=== PATIENT | male | born 1935 | race Caucasian/White ===

== ENCOUNTER 2019-07-27 17:54 | Inpatient (IN) ==
[2019-07-27 18:31] LABS: Hematocrit (blood only) 37.4 % (42-52); Hemoglobin 12.2 g/dL (14.0-18.0); Mean Corpuscular Hemoglobin 30.6 pg (25-34); Mean Corpuscular Hgb Conc 32.6 g/dL (32-36); Mean Corpuscular Volume 93.7 fL (80-100); Mean Platelet Volume 12.1 fL (7.4-10.4); Platelet Count 173 K/uL (130-400); RDW Coefficient of Variation 16.6 % (11.5-14.5); RDW Standard Deviation 56.8 fL (36.4-46.3); Red Blood Count 3.99 M/uL (4.7-6.1); White Blood Count 16.17 K/uL (4.8-10.8)
--- NOTE | 2019-07-27 18:31 | Emergency Department Note ---
Entered by Naida Hollingsworth acting as a scribe for History of Present Illness General Chief complaint: Confusion Stated complaint: CONFUSION, LETHARGY Time Seen by Provider: 07/27/19 18:14 Source: patient History of Present Illness Provider complaint: confusion Onset (ago): hour(s) Location: left and right Pain Consistency: + now resolved Quality: + other (confusion) Associated symptoms: + other (Negative generalized pain; Negative recent falls); no fever/chills and no nausea/vomiting The patient, who is a 83 year old male with a medical history of GE junction carcinoma and a benign prostatic hyperplasia, presents to the Emergency Room with complaints of confusion that occurred prior to arrival. The patient states that a couple hours ago he was unable to find any of the three bathrooms in his house. The patient denies fever, nausea, vomiting, generalized pain or recent falls. The patient explains that he has intermittent urinary burning and diarrhea that is unrelated this this event. The patient denies the use of oxygen at home. The patient explains tat he has never been confused before and states that he feels fine right now. The patient confirms that he lives with his and is maintaining appropriate fluids. The patient reports that that he has esophageal cancer that has metastasized but he is unsure wear. The patient states that he had chemotherapy treatment recently and did not have a change in medication. The patient denies that he is taking pain medication at this time. The patient states that he was diabetic but he has lost weight and reports non- concerning glucose levels. Home Medications Home Medications Medication Instructions Recorded Confirmed Type enalapril maleate [Vasotec] 10 mg PO QAM 01/13/19 07/27/19 History finasteride [Proscar] 5 mg PO QPM 01/13/19 07/27/19 History pravastatin [Pravachol] 40 mg PO HS 01/13/19 07/27/19 History ranitidine HCl [Acid Control 150 mg PO BID 01/13/19 07/27/19 History (ranitidine)] tamsulosin [Flomax] 0.4 mg PO HS 01/13/19 07/27/19 History ondansetron HCl [Zofran] 8 mg PO Q8 PRN 03/23/19 07/27/19 History prochlorperazine maleate 10 mg PO Q6H PRN 03/23/19 07/27/19 History dexamethasone 12 mg PO DIRECTED 06/15/19 07/27/19 History fluticasone propionate 2 spray INTRANASAL DAILY 06/15/19 07/27/19 History lorazepam 0.5 mg PO TID PRN 06/15/19 07/27/19 History oxycodone 5 mg PO Q6H PRN 06/15/19 07/27/19 History pantoprazole 40 mg PO DAILY 06/15/19 07/27/19 History Allergies Allergy/AdvReac Type Severity Reaction Status Date / Time cephalexin [From Keflex] Allergy Severe Rash Verified 07/27/19 18:36 Sulfa (Sulfonamide Allergy Severe Rash Verified 07/27/19 18:36 Antibiotics) Past Med/Surg History Medical History BPH (benign prostatic hyperplasia) (Chronic) 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) Aortic valve stenosis (Chronic) Moderate - STACEY: 1.4 cm2, Ao mean PG 17.4 mmHg Chronic kidney disease (CKD) (Chronic) Chronic rhinitis (Chronic) 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) Diaphragmatic hernia (Chronic) Dyslipidemia (Chronic) Esophageal reflux (Chronic) Hypertension (Chronic) Hypertrophic and atrophic condition of skin (Chronic) Insomnia (Chronic) Microalbuminuria (Chronic) TIA (transient ischemic attack) (Resolved) Question 1996 Cardiac murmur Hyperlipidemia Kidney stones Surgical History History of esophagogastroduodenoscopy (EGD) (Resolved) 12/09/18 & 01/13/19 History of appendectomy (Resolved) Age 16 History of anesthesia reaction UNABLE TO URINATE S/P EGD (BELIEVES IT WAS THE ANESTHESIA) AND HAD TO COME TO [facility] FOR A SCOTT CATH X2 DAYS. History of colonoscopy History of cystoscopy WITH ATTEMPTED STONE EXTRACTION Family History Mother , Passed age 67 of gallbladder surgery No problems noted. Father , Passed age 86 from complications of fall (bloodclot) No problems noted. Sister , Passed age 63 of MS No problems noted. Sister , Passed age 71 of "cancer of the blood" No problems noted. Sister , Passed age 89 of "bleeding ulcers" No problems noted. Daughter No problems noted. Daughter No problems noted. 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 and A total of 10 systems reviewed and were otherwise negative Physical Exam Vital Signs Vital Signs - 24 hr 07/27/19 17:45 07/27/19 18:36 07/27/19 19:41 Temperature 36.6 C Temperature Source Oral Sepsis Recent Fever Within 48 Hours No Sepsis Action Taken by Nursing No Action Required Pulse Rate 77 Pulse Rate [Right Finger] 72 Respiratory Rate 17 20 Blood Pressure 136/70 Blood Pressure [Right Arm] 155/70 H Blood Pressure Mean 92 Blood Pressure Mean [Right Arm] 98 Blood Pressure Position [Right Arm] Lying Pulse Oximetry 93 93 95 Oxygen Delivery Method Room Air Room Air Room Air General: Cachectic appearing older male in no acute distress. HEENT: Normal cephalic atraumatic. Pupils are equal round and reactive to light. Extraocular movements are intact. Oropharynx is pink with moist mucous membranes. No swelling of the mouth lips or tongue. Neck: Supple with a midline trachea. No meningeal signs or stiffness, no JVD or bruits. No Stridor. Chest: Clear to auscultation bilaterally. No wheezes or rhonchi. No increased work of breathing. A port in right chest Heart: regular rate and rhythm. Abdomen: Soft nontender, nondistended without rebound guarding or rigidity. Extremities: No cyanosis clubbing or edema. No calf tenderness or asymmetry Spine/Back. Non tender to palpation. No CVA tenderness Skin: Good turgor without rashes. Neurologic exam: Cranial nerves two through 12 are intact. Motor and sensation are intact and symmetrical throughout. At present alert and orient x3. Course 1815: Past medical records reviewed. The patient was evaluated in room C4. A complete history and physical exam was performed. 1922: I reassessed that patient who appears comfortable. I discussed the patient's results with his daughter and granddaughter. They have agreed that the patient should be admitted. 1933: I reviewed the patient's case with Gabo Dill Hospitalist . He will evaluate the patient for further management. 1936: I reassessed the patient who is doing ok. I updated them on hospitalist evaluation and antibiotics are starting to be administered. Consultations Consultation #1: I reviewed the patient's case with Gabo Dill Hospitalist . He will evaluate the patient for further management. Time: 19:34 Administered Medications Finasteride (Proscar) 5 mg PO QPM [facility] Stop: 08/26/19 21:26 Last Admin: 07/27/19 22:58 Dose: 5 mg Documented by: [id number] Potassium Chloride 40 meq/ (Sodium Chloride) 1,020 mls @ 100 mls/hr IV .[id number] STA Stop: 07/28/19 05:56 Last Admin: 07/27/19 20:40 Dose: 100 mls/hr Documented by: [id number] Promethazine HCl 12.5 mg/ (Sodium Chloride) 50.5 mls @ 202 mls/hr IV Q6H PRN PRN Reason: Nausea And Vomiting Stop: 08/26/19 21:26 Last Infusion: 07/27/19 23:08 Dose: 0 mls/hr Documented by: [id number] Admin: 07/27/19 22:14 Dose: 202 mls/hr Documented by: [id number] Magnesium Sulfate/Dextrose (Magnesium Sulfate / D5w) 1 gm in 100 mls @ 100 m ls/hr IV Q1H NITA Stop: 07/28/19 00:59 Last Admin: 07/28/19 00:26 Dose: 100 mls/hr Documented by: [id number] Infusion: 07/28/19 00:26 Dose: 100 mls/hr Documented by: [id number] Admin: 07/27/19 23:36 Dose: 100 mls/hr Documented by: [id number] Infusion: 07/27/19 23:16 Dose: 100 mls/hr Documented by: [id number] Admin: 07/27/19 22:16 Dose: 100 mls/hr Documented by: [id number] Insulin Aspart (Novolog Flexpen) 0 units SC ACHS NITA Stop: 08/26/19 21:59 Last Admin: 07/27/19 22:46 Dose: Not Given Documented by: [id number] Cosigned by: [id number] Pravastatin Sodium (Pravachol) 40 mg PO HS NITA Stop: 08/26/19 21:26 Last Admin: 07/27/19 22:58 Dose: 40 mg Documented by: [id number] Tamsulosin HCl (Flomax) 0.4 mg PO HS NITA Stop: 08/26/19 21:26 Last Admin: 07/27/19 22:58 Dose: 0.4 mg Documented by: [id number] Discontinued Medications Levofloxacin/Dextrose (Levaquin/D5w) 500 mg in 100 mls @ 100 mls/hr IV Q24H NITA Stop: 07/29/19 19:29 Last Infusion: 07/27/19 20:39 Dose: 0 mls/hr Documented by: [id number] Admin: 07/27/19 19:29 Dose: 100 mls/hr Documented by: [id number] Sodium Chloride (Nss 1000ml) 1,000 mls @ 999 mls/hr IV .Q1H1M ONE Stop: 07/27/19 20:21 Last Infusion: 07/27/19 20:37 Dose: 0 mls/hr Documented by: [id number] Admin: 07/27/19 19:29 Dose: 999 mls/hr Documented by: [id number] Ertapenem (Invanz) 10 mls @ 2 mls/min IV NOW STA Stop: 07/27/19 19:50 Last Admin: 07/27/19 20:46 Dose: 2 mls/min Documented by: [id number] Potassium Chloride (K [place] / Wtr) 10 meq in 100 mls @ 100 mls/hr IV Q1H NITA Stop: 07/27/19 23:59 Last Admin: 07/27/19 23:54 Dose: 100 mls/hr Documented by: [id number] Infusion: 07/27/19 23:53 Dose: 100 mls/hr Documented by: [id number] Admin: 07/27/19 22:53 Dose: 100 mls/hr Documented by: [id number] Potassium Chloride (Klor-Con M20) 40 meq PO NOW STA Stop: 07/27/19 19:41 Last Admin: 07/27/19 20:46 Dose: Not Given Documented by: [id number] Medical Decision Making Differential Diagnosis Differential diagnosis includes: infection, cancer related complications, medication side effect, electrolyte and metabolic abnormalities, intracranial process, sepsis, as well as others were entertained. Medical Records Attestation: I reviewed the patient's medical records. Home Medications Current Medication List: was personally reviewed by me Laboratory Data Attestation: I reviewed the patient's lab results. Result diagrams: 07/27/19 18:00 07/27/19 22:09 Lab Results 07/27/19 07/27/19 07/27/19 Range/Units 18:00 18:00 18:00 WBC 16.17 H (4.8-10.8) K/uL RBC 3.99 L (4.7-6.1) M/uL Hgb 12.2 L (14.0-18.0) g/dL Hct 37.4 L (42-52) % MCV 93.7 (80-100) fL MCH 30.6 (25-34) pg MCHC 32.6 (32-36) g/dL RDW Std Deviation 56.8 H (36.4-46.3) fL RDW Coeff of Julian 16.6 H (11.5-14.5) % Plt Count 173 (130-400) K/uL MPV 12.1 H (7.4-10.4) fL Immature Gran % (Auto) 0.4 % Neut % (Auto) 94.9 % Lymph % (Auto) 2.2 % [place] % (Auto) 2.4 % Eos % (Auto) 0.0 % Baso % (Auto) 0.1 % Immature Gran # (Auto) 0.06 H (0.00-0.02) K/uL Neut # (Auto) 15.35 H (1.4-6.5) K/uL Lymph # (Auto) 0.36 L (1.2-3.4) K/uL [place] # (Auto) 0.39 (0.11-0.59) K/uL Eos # (Auto) 0.00 (0-0.5) K/uL Baso # (Auto) 0.01 (0-0.2) K/uL PT 12.2 H (9.0-12.0) Seconds INR 1.2 H (0.9-1.1) APTT 29.6 (21.0-31.0) Seconds PTT Ratio 1.1 Sodium 148 H (136-145) mmol/L Potassium 3.3 L (3.5-5.1) mmol/L Chloride 112 H (98-107) mmol/L Carbon Dioxide 26 (21-32) mmol/L Anion Gap 10.0 (3-11) BUN 24 H (7-18) mg/dl Creatinine 1.25 (0.6-1.4) mg/dl Est Cr Clr Drug Dosing 33.3 ml/min Est GFR ( Amer) 60.9 Est GFR (Non-Af Amer) 52.5 BUN/Creatinine Ratio 19.2 (10-20) Glucose 111 H (70-99) mg/dl Lactate (0.4-2.0) mmol/L Calcium 8.2 L (8.5-10.1) mg/dl Magnesium 1.4 L (1.8-2.4) mg/dl Total Bilirubin 0.9 (0.2-1) mg/dl AST 24 (15-37) U/L ALT 20 (12-78) U/L Alkaline Phosphatase 65 (45-117) U/L Troponin I 0.070 H* (0-0.045) ng/ml Total Protein 6.4 (6.4-8.2) gm/dl Albumin 2.8 L (3.4-5.0) gm/dl Globulin 3.6 (2.5-4.0) gm/dl Albumin/Globulin Ratio 0.8 L (0.9-2) TSH 1.620 (0.300-4.500) uIu/ml 07/27/19 Range/Units 18:51 WBC (4.8-10.8) K/uL RBC (4.7-6.1) M/uL Hgb (14.0-18.0) g/dL Hct (42-52) % MCV (80-100) fL MCH (25-34) pg MCHC (32-36) g/dL RDW Std Deviation (36.4-46.3) fL RDW Coeff of Julian (11.5-14.5) % Plt Count (130-400) K/uL MPV (7.4-10.4) fL Immature Gran % (Auto) % Neut % (Auto) % Lymph % (Auto) % [place] % (Auto) % Eos % (Auto) % Baso % (Auto) % Immature Gran # (Auto) (0.00-0.02) K/uL Neut # (Auto) (1.4-6.5) K/uL Lymph # (Auto) (1.2-3.4) K/uL [place] # (Auto) (0.11-0.59) K/uL Eos # (Auto) (0-0.5) K/uL Baso # (Auto) (0-0.2) K/uL PT (9.0-12.0) Seconds INR (0.9-1.1) APTT (21.0-31.0) Seconds PTT Ratio Sodium (136-145) mmol/L Potassium (3.5-5.1) mmol/L Chloride (98-107) mmol/L Carbon Dioxide (21-32) mmol/L Anion Gap (3-11) BUN (7-18) mg/dl Creatinine (0.6-1.4) mg/dl Est Cr Clr Drug Dosing ml/min Est GFR ( Amer) Est GFR (Non-Af Amer) BUN/Creatinine Ratio (10-20) Glucose (70-99) mg/dl Lactate 2.2 H* (0.4-2.0) mmol/L Calcium (8.5-10.1) mg/dl Magnesium (1.8-2.4) mg/dl Total Bilirubin (0.2-1) mg/dl AST (15-37) U/L ALT (12-78) U/L Alkaline Phosphatase (45-117) U/L Troponin I (0-0.045) ng/ml Total Protein (6.4-8.2) gm/dl Albumin (3.4-5.0) gm/dl Globulin (2.5-4.0) gm/dl Albumin/Globulin Ratio (0.9-2) TSH (0.300-4.500) uIu/ml Imaging Data Radiologist's Impression: Radiology results as stated below per my review and the radiologist's interpretation: XR chest 1V portable CLINICAL HISTORY: 83 years-old Male presenting with Sepsis. TECHNIQUE: Portable upright AP view of the chest was obtained. COMPARISON: 02/25/2019 and PET/CT from 07/21/2019. FINDINGS: Right internal jugular Mediport terminates in the upper SVC. Atherosclerosis of the aortic arch. Cardiac silhouette mildly enlarged. Lungs are hyperinflated. Interval development of a peripheral dense opacity in the right mid to upper lung. This was not present on recent PET/CT. No large effusion or pneumothorax. Prominent skin folds project over the periphery of the left upper lung. Several vague nodules may be present. Degenerative changes of the thoracic spine. Upper abdomen normal. IMPRESSION: 1. Interval development of a right mid to upper lung dense infiltrate. This is evidence of pneumonia. This is new from recent PET/CT. 2. Mild cardiomegaly. 3. Hyperinflation may suggest underlying emphysema or other obstructive lung disease. Electronically signed by: Carlin Delong M.D. 07/27/2019 6:[address] head/brain wo con CLINICAL HISTORY: 83 years-old Male presenting with confusion, on chemo for esophageal ca. TECHNIQUE: Multidetector CT imaging of the head was performed without the use of intravenous contrast. IV contrast: None. One or more dose lowering techniques were used consistent with the principles of ALARA (as low as reasonably achievable), including automatic exposure control, mA or kV adjustment to individual patient size, and/or use of iterative reconstruction. COMPARISON: PET/CT from 07/21/2019. CT DOSE (mGy.cm): The estimated cumulative dose is 614.27 mGy.cm. FINDINGS: Para Operator topogram: Unremarkable. Ventricles and sulci normal in size. No hemorrhage. A round focus measuring 1.4 cm with surrounding hypoattenuation in the right occipital lobe likely representing a focal lesion with surrounding vasogenic edema. Hypoattenuation involves the overlying back matter. Regional sulcal effacement. There is a second site of hypoattenuation in the periatrial right temporal lobe which is sm aller and less well delineated. Periventricular and subcortical white matter hypoattenuation likely chronic small vessel ischemic change. No acute territorial infarct. No midline shift. No extra-axial fluid collection. Paranasal sinuses and mastoid air cells clear. Calvarium intact. IMPRESSION: 1. Right occipital lobe lesion is favored to represent a metastasis. Acute to subacute stroke is considered less likely. A second lesion may also be present in the right temporal lobe. These are be better demonstrated with contrast- enhanced brain MRI. 2. Chronic small vessel ischemic change. 3. No hemorrhage. Electronically signed by: Carlin Delong M.D. 07/27/2019 7:04 PM ECG Data Attestation: I personally reviewed and interpreted this ECG as follows: Indication: + other (metabolic) Rate (beats per minute): 72 Rhythm: + normal sinus ECG Findings: + Other (Low voltage; Poor quality data; No ischemic changes) Comparison ECG Date: no prior available Blood Pressure Blood Pressure Findings: Normal blood pressure MDM Narrative This patient comes in as described above. He was placed in room C4. He is being treated for esophageal cancer and chemo on Sunday. He said he was confused today and could not find the bathroom in his house but he seemed to be doing better at present. He has no complaints. His initial vital signs are stable. Given his complex history, I did extensive work-up to evaluate for infection intracranial process and other etiologies. He is a diabetic but says his blood sugars been running well. He does have an a port. IV access established, blood cultures were obtained as well as lactic acid, chest x-ray, urinalysis and culture. He also did a CAT scan of his head and chest x-ray and EKG. He was reassessed frequently. I did talk to the family members who arrived at length at the bedside. They feel he is more confused. he has had a cough. Chest x-ray does show a pneumonia on the right. Additionally on the CAT scan of his head, he has a right occipital mass versus subacute stroke. He has no visual changes at present or any new acute neurologic deficits. His white count is elevated, his lactic acid is also mildly elevated at 2.2. He was given IV Zosyn as well as additional IV fluid boluses for concern for sepsis. He does have central access with his a port but is brought blood pressure has remained normotensive. I do think he needs to be admitted/observe for further treatment and evaluation I have consult Dr. Carpenter to see him in the ER for these measures. Impression & Plan Sepsis, Pneumonia, Esophageal cancer, Brain lesion, Hypernatremia, Dehydration Critical Care Time Critical Care Time: Yes Total Critical Care Time: 35 I have personally spent 35 minutes of critical care time in the direct management of this patient. This includes bedside care, interpretation of diagnostic studies, and testing, discussion with consultants, patient, and family members, and other required patient management activities. This 35 minutes is in excess of all separately billable procedures. Discharge Plan Visit Data *Final* Discharge Date/Time: 07/27/19 21:10 Chief Complaint: Confusion Stated Complaint: CONFUSION, LETHARGY ED Provider: Abebe Gonzalez Discharge Problem: Sepsis, Pneumonia, Esophageal cancer, Brain lesion, Hypernatremia, Dehydration Patient Disposition: Admitted As Inpatient Discharge Instructions Interventions: ED Discharge Assessment Last Done: 07/27/19 21:10 The scribe's documentation has been prepared under my direction and personally reviewed by me in its entirety. I confirm that the note above accurately reflects all work, treatment, procedures, and medical decision making performed by me.
[2019-07-27 18:36] LABS: Albumin Level 2.8 gm/dl (3.4-5.0); BUN Creatinine Ratio 19.2 (10-20); Calcium 8.2 mg/dl (8.5-10.1); Creatinine Clr Calc Pharmacy 33.3 ml/min; Est GFR (African American) 60.9; Est GFR (Non-African American) 52.5; Potassium 3.3 mmol/L (3.5-5.1)
[2019-07-27 18:42] LABS: Albumin Globulin Ratio 0.8 (0.9-2); Bilirubin,Total 0.9 mg/dl (0.2-1); Globulin 3.6 gm/dl (2.5-4.0); INR 1.2 (0.9-1.1); Partial Thromboplastin Ratio 1.1; Partial Thromboplastin Time 29.6 Seconds (21.0-31.0); Prothrombin Time 12.2 Seconds (9.0-12.0); Total Protein 6.4 gm/dl (6.4-8.2); Troponin I 0.07 ng/ml (0-0.045)
[2019-07-27 18:56] LABS: Basophils # (auto) 0.01 K/uL (0-0.2); Basophils % (auto) 0.1 %; Immature Granulocytes # (auto) 0.06 K/uL (0.00-0.02); Immature Granulocytes % (auto) 0.4 %; Lymphocytes # (auto) 0.36 K/uL (1.2-3.4); Lymphocytes % (auto) 2.2 %; Monocytes # (auto) 0.39 K/uL (0.11-0.59); Monocytes % (auto) 2.4 %; Neutrophils # (auto) 15.35 K/uL (1.4-6.5); Neutrophils % (auto) 94.9 %
--- NOTE | 2019-07-27 18:59 | XRay Report ---
XR chest 1V portable CLINICAL HISTORY: 83 years-old Male presenting with Sepsis. TECHNIQUE: Portable upright AP view of the chest was obtained. COMPARISON: 02/25/2019 and PET/CT from 07/21/2019. FINDINGS: Right internal jugular Mediport terminates in the upper SVC. Atherosclerosis of the aortic arch. Card iac silhouette mildly enlarged. Lungs are hyperinflated. Interval development of a peripheral dense o pacity in the right mid to upper lung. This was not present on recent PET/CT. No large effusion or pn eumothorax. Prominent skin folds project over the periphery of the left upper lung. Several vague nod ules may be present. Degenerative changes of the thoracic spine. Upper abdomen normal. IMPRESSION: 1. Interval development of a right mid to upper lung dense infiltrate. This is evidence of pneumonia . This is new from recent PET/CT. 2. Mild cardiomegaly. 3. Hyperinflation may suggest underlying emphysema or other obstructive lung disease. Electronically signed by: Carlin Delong M.D. 07/27/2019 6:58 PM
--- NOTE | 2019-07-27 19:06 | CT Scan Report ---
CT head/brain wo con CLINICAL HISTORY: 83 years-old Male presenting with confusion, on chemo for esophageal ca. TECHNIQUE: Multidetector CT imaging of the head was performed without the use of intravenous contrast . IV contrast: None. One or more dose lowering techniques were used consistent with the principles of ALARA (as low as reasonably achievable), including automatic exposure control, mA or kV adjustment t o individual patient size, and/or use of iterative reconstruction. COMPARISON: PET/CT from 07/21/2019. CT DOSE (mGy.cm): The estimated cumulative dose is 614.27 mGy.cm. FINDINGS: Sodium Chlorite Operator topogram: Unremarkable. Ventricles and sulci normal in size. No hemorrhage. A round focus measuring 1.4 cm with surrounding h ypoattenuation in the right occipital lobe likely representing a focal lesion with surrounding vasoge troy edema. Hypoattenuation involves the overlying back matter. Regional sulcal effacement. There is a second site of hypoattenuation in the periatrial right temporal lobe which is smaller and less well delineated. Periventricular and subcortical white matter hypoattenuation likely chronic small vessel ischemic change. No acute territorial infarct. No midline shift. No extra-axial fluid collection. Par anasal sinuses and mastoid air cells clear. Calvarium intact. IMPRESSION: 1. Right occipital lobe lesion is favored to represent a metastasis. Acute to subacute stroke is con sidered less likely. A second lesion may also be present in the right temporal lobe. These are be bet ter demonstrated with contrast-enhanced brain MRI. 2. Chronic small vessel ischemic change. 3. No hemorrhage. Electronically signed by: Carlin Delong M.D. 07/27/2019 7:04 PM
[2019-07-27] MEDS ORDERED: SODIUM CHLORIDE 0.9% 1000ML 1,000 ML IV ONE (19:21)
[2019-07-27] MEDS ORDERED: LEVOFLOXACIN/D5W 500 MG/100 ML BAG IV SCH (19:30)
[2019-07-27] MEDS ORDERED: POTASSIUM CHLORIDE 20 MEQ TABCR PO STA (19:40)
[2019-07-27] MEDS ORDERED: POTASSIUM CHLORIDE 40 MEQ in SODIUM CHLORIDE 0.45 % 1,000 ML IV STA (19:45)
[2019-07-27] MEDS ORDERED: ERTAPENEM SODIUM 10 ML IV STA (19:46)
[2019-07-27 20:15] LABS: Magnesium 1.4 mg/dl (1.8-2.4); Thyroid Stimulating Hormone 1.62 uIu/ml (0.300-4.500)
--- NOTE | 2019-07-27 20:42 | History & Physical Report ---
Date of Service July 27, 2019 Assessment & Plan (1) Encephalopathy: Patient mentation currently improved after initial intervention at the ER as per family. 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 intake secondary to progressive dysphagia/regurgitation symptoms Possible brain mets Rule out hepatic encephalopathy given liver disease Hypokalemia secondary to poor p.o. intake Troponin elevation secondary to illness hypertension, slightly elevated hyperlipidemia on statin Rx DM 2 diet-controlled, well-controlled as of recent outpatient hemoglobin A1c of 5.22 Jan 2019 chronic anemia, hemoglobin at baseline Malnutrition (low BMI) secondary to poor p.o. intake secondary to progressive dysphagia past tobacco abuse. Medical telemetry CS. Zosyn Aspiration precautions, swallow eval GI consult RE progressive dysphagia, regurgitation IVF, follow lactic acid Replace electrolytes check ammonia level Follow troponin, TTE if with progression MRI brain RE abnormal CT head ISS BG goal [id number], update hemoglobin A1c Nutrition consult RE low BMI PT OT eval DVT prophylaxis. SCDs RE possible brain mets Full code Patient's daughter requesting updates from providers. Ms. Nolvia Abdi, contact #[phone], [phone]. History of Present Illness Chief Complaint: Feeling fuzzy as per patient, confusion as per family Primary Care Provider: Chanda Meeks, History obtained from patient, family, and records. 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 Patient noted worsening dysphagia, regurgitation over the last few months, occasional coughing with meals and water intake if not careful. No chest pain, no unusual shortness of breath. Significant weight loss as per family. Today patient noted to be disoriented by family. Patient feeling fuzzy, could not find any of the bathrooms in his home. Denies headache. Denies abdominal pain, diarrhea. Denies dysuria. Usual urinary retention issues. Denies inordinate intake of pain/anxiety medications. At the ER, patient given Levaquin for sepsis. 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 Allergies Allergy/AdvReac Type Severity Reaction Status Date / Time cephalexin [From Keflex] Allergy Severe Rash Verified 07/27/19 18:36 Sulfa (Sulfonamide Allergy Severe Rash Verified 07/27/19 18:36 Antibiotics) Home Medications Home Medications Medication Instructions Recorded Confirmed Type enalapril maleate [Vasotec] 10 mg PO QAM 01/13/19 07/27/19 History finasteride [Proscar] 5 mg PO QPM 01/13/19 07/27/19 History pravastatin [Pravachol] 40 mg PO HS 01/13/19 07/27/19 History ranitidine HCl [Acid Control 150 mg PO BID 01/13/19 07/27/19 History (ranitidine)] tamsulosin [Flomax] 0.4 mg PO HS 01/13/19 07/27/19 History ondansetron HCl [Zofran] 8 mg PO Q8 PRN 03/23/19 07/27/19 History prochlorperazine maleate 10 mg PO Q6H PRN 03/23/19 07/27/19 History dexamethasone 12 mg PO DIRECTED 06/15/19 07/27/19 History fluticasone propionate 2 spray INTRANASAL DAILY 06/15/19 07/27/19 History lorazepam 0.5 mg PO TID PRN 06/15/19 07/27/19 History oxycodone 5 mg PO Q6H PRN 06/15/19 07/27/19 History pantoprazole 40 mg PO DAILY 06/15/19 07/27/19 History Past Med/Surg History Medical History BPH (benign prostatic hyperplasia) (Chronic) 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) Aortic valve stenosis (Chronic) Moderate - STACEY: 1.4 cm2, Ao mean PG 17.4 mmHg Chronic kidney disease (CKD) (Chronic) Chronic rhinitis (Chronic) 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) Diaphragmatic hernia (Chronic) Dyslipidemia (Chronic) Esophageal reflux (Chronic) Hypertension (Chronic) Hypertrophic and atrophic condition of skin (Chronic) Insomnia (Chronic) Microalbuminuria (Chronic) TIA (transient ischemic attack) (Resolved) Question 1996 Cardiac murmur Hyperlipidemia Kidney stones Surgical History History of esophagogastroduodenoscopy (EGD) (Resolved) 12/09/18 & 01/13/19 History of appendectomy (Resolved) Age 16 History of anesthesia reaction UNABLE TO URINATE S/P EGD (BELIEVES IT WAS THE ANESTHESIA) AND HAD TO COME TO [facility] EMERGENCY ROOM FOR A SCOTT CATH X2 DAYS. History of colonoscopy History of cystoscopy WITH ATTEMPTED STONE EXTRACTION Family History Mother , Passed age 67 of gallbladder surgery No problems noted. Father , Passed age 86 from complications of fall (bloodclot) No problems noted. Sister , Passed age 63 of [place] No problems noted. Sister , Passed age 71 of "cancer of the blood" No problems noted. Sister , Passed age 89 of "bleeding ulcers" No problems noted. Daughter No problems noted. Daughter No problems noted. 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 Feels Safe at Home: Yes Safety Concerns: Feels Safe At This Time Smoking Status: Former smoker Tobacco Type: cigarettes ; packs per day: 1 ; Cigarettes Per Day: 1 PPD X 30 YEARS AGO ; Second Hand Exposure: No ; Hx Alcohol Use: No Hx Substance Use: No Childhood Exposure to Second-Hand Smoke: Yes caffeine: Yes (2-3 cups of pepsi/day) during the past year weight has: decreased > 10 lbs Dental Care, Regularly: Yes Review of Systems Review of Systems: As per HPI, all 10 systems reviewed, all other ROS negative Physical Exam Physical Exam: GENERAL: Comfortable, pleasant, underweight, no respiratory distress, somewhat slowed response to some questions SKIN: Pallor , warm HEENT: pale palpebral conjunctivae, no ptosis, dry buccal mucosa NECK : Supple, no tenderness CHEST : Decreased breath sounds, no tenderness HEART : RRR, systolic murmur ABDOMEN: Scaphoid abdomen, nontender EXTREMITIES : No LE swelling/tenderness, no other conspicuous deformities noted NEUROLOGIC : Coherent but somewhat slowed response to questions, no facial asymmetry, no other gross focality Results & Data Vital Signs (Past 12 Hours) Vital Signs Temp Pulse Pulse Resp BP BP Pulse Ox 07/27/19 19:41 72 20 155/70 H 95 07/27/19 18:36 93 07/27/19 17:45 36.6 C 77 17 136/70 93 Laboratory Results Laboratory Results WBC 16.17 K/uL (4.8-10.8) H 07/27/19 18:00 RBC 3.99 M/uL (4.7-6.1) L 07/27/19 18:00 Hgb 12.2 g/dL (14.0-18.0) L 07/27/19 18:00 Hct 37.4 % (42-52) L 07/27/19 18:00 MCV 93.7 fL (80-100) 07/27/19 18:00 MCH 30.6 pg (25-34) 07/27/19 18:00 MCHC 32.6 g/dL (32-36) 07/27/19 18:00 RDW Std Deviation 56.8 fL (36.4-46.3) H 07/27/19 18:00 RDW Coeff of Julian 16.6 % (11.5-14.5) H 07/27/19 18:00 Plt Count 173 K/uL (130-400) 07/27/19 18:00 MPV 12.1 fL (7.4-10.4) H 07/27/19 18:00 Immature Gran % (Auto) 0.4 % 07/27/19 18:00 Neut % (Auto) 94.9 % 07/27/19 18:00 Lymph % (Auto) 2.2 % 07/27/19 18:00 [place] % (Auto) 2.4 % 07/27/19 18:00 Eos % (Auto) 0.0 % 07/27/19 18:00 Baso % (Auto) 0.1 % 07/27/19 18:00 Immature Gran # (Auto) 0.06 K/uL (0.00-0.02) H 07/27/19 18:00 Neut # (Auto) 15.35 K/uL (1.4-6.5) H 07/27/19 18:00 Lymph # (Auto) 0.36 K/uL (1.2-3.4) L 07/27/19 18:00 [place] # (Auto) 0.39 K/uL (0.11-0.59) 07/27/19 18:00 Eos # (Auto) 0.00 K/uL (0-0.5) 07/27/19 18:00 Baso # (Auto) 0.01 K/uL (0-0.2) 07/27/19 18:00 PT 12.2 Seconds (9.0-12.0) H 07/27/19 18:00 INR 1.2 (0.9-1.1) H 07/27/19 18:00 APTT 29.6 Seconds (21.0-31.0) 07/27/19 18:00 PTT Ratio 1.1 07/27/19 18:00 Sodium 148 mmol/L (136-145) H 07/27/19 18:00 Potassium 3.3 mmol/L (3.5-5.1) L 07/27/19 18:00 Chloride 112 mmol/L (98-107) H 07/27/19 18:00 Carbon Dioxide 26 mmol/L (21-32) 07/27/19 18:00 Anion Gap 10.0 (3-11) 07/27/19 18:00 BUN 24 mg/dl (7-18) H 07/27/19 18:00 Creatinine 1.25 mg/dl (0.6-1.4) 07/27/19 18:00 Est Cr Clr Drug Dosing 33.3 ml/min 07/27/19 18:00 Est GFR ( Amer) 60.9 07/27/19 18:00 Est GFR (Non-Af Amer) 52.5 07/27/19 18:00 BUN/Creatinine Ratio 19.2 (10-20) 07/27/19 18:00 Glucose 111 mg/dl (70-99) H 07/27/19 18:00 Lactate 2.2 mmol/L (0.4-2.0) H* 07/27/19 18:51 Calcium 8.2 mg/dl (8.5-10.1) L 07/27/19 18:00 Magnesium 1.4 mg/dl (1.8-2.4) L 07/27/19 18:00 Total Bilirubin 0.9 mg/dl (0.2-1) 07/27/19 18:00 AST 24 U/L (15-37) 07/27/19 18:00 ALT 20 U/L (12-78) 07/27/19 18:00 Alkaline Phosphatase 65 U/L (45-117) 07/27/19 18:00 Troponin I 0.070 ng/ml (0-0.045) H* 07/27/19 18:00 Total Protein 6.4 gm/dl (6.4-8.2) 07/27/19 18:00 Albumin 2.8 gm/dl (3.4-5.0) L 07/27/19 18:00 Globulin 3.6 gm/dl (2.5-4.0) 07/27/19 18:00 Albumin/Globulin Ratio 0.8 (0.9-2) L 07/27/19 18:00 TSH 1.620 uIu/ml (0.300-4.500) 07/27/19 18:[address] head: 1. Right occipital lobe lesion is favored to represent a metastasis. Acute to subacute stroke is considered less likely. A second lesion may also be present in the right temporal lobe. These are be better demonstrated with contrast- enhanced brain MRI. 2. Chronic small vessel ischemic change. 3. No hemorrhage Chest x-ray : 1. Interval development of a right mid to upper lung dense infiltrate. This is evidence of pneumonia. This is new from recent PET/CT. 2. Mild cardiomegaly. 3. Hyperinflation may suggest underlying emphysema or other obstructive lung disease. EKG as per my interpretation : Rate 70, NSR, normal axis, T wave flattening lateral leads, low voltage
[2019-07-27] MEDS ORDERED: ACETAMINOPHEN 325 MG TAB PO PRN (21:27)
[2019-07-27] MEDS ORDERED: GLUCOSE 40% GEL 15 GM TUBE PO PRN (21:27)
[2019-07-27] MEDS ORDERED: OXYCODONE HCL IR 5 MG TAB (IMMEDIATE RELEASE) PO PRN (21:27)
[2019-07-27] MEDS ORDERED: GLUCOSE 10 TABS/TUBE PO PRN (21:27)
[2019-07-27] MEDS ORDERED: DEXTROSE 50% 50 ML SYRINGE IV PRN (21:27)
[2019-07-27] MEDS ORDERED: GLUCAGON FOR INJ 1 MG VIAL SQ PRN (21:27)
[2019-07-27] MEDS ORDERED: PROMETHAZINE HCL 12.5 MG in SODIUM CHLORIDE 0.9% 50 ML IV PRN (21:27)
[2019-07-27] MEDS ORDERED: CARBOHYDRATES FOR HYPOGLYCEMIA PO PRN (21:27)
[2019-07-27 21:29] LABS: Appearance Urine Turbid (Clear); Bacteria Urine Automated 4+ (Negative); Bilirubin Urine Negative (Negative); Blood Urine 2+ (Negative); Color Urine Dark Yellow; Epithelial Cell Urine Auto 20-30 /lpf (0-5); Glucose Urine UA Negative (Negative); Ketones Urine Negative (Negative); Leukocyte Esterase Urine 3+ (Negative); Nitrite Urine Negative (Negative); Protein Urine 2+ (Negative); Urobilinogen Urine Negative (Negative); WBC Urine Automated >30 /hpf (0-5); pH Urine 5.5 (4.5-7.5)
[2019-07-27 21:53] LABS: Cast Urine Automated 0 /lpf (0-5)
[2019-07-27] MEDS ORDERED: ERTAPENEM CONSULT ACTIVE PRN (22:04)
[2019-07-27] MEDS: MAGNESIUM SULFATE / D5W 1 GM/100 ML BAG IV SCH ×2 (22:16→23:36)
[2019-07-27 22:40] LABS: Troponin I 0.051 ng/ml (0-0.045)
[2019-07-27] MEDS: INSULIN ASPART 100 UNITS/ML 3 ML PEN SC SCH (22:46)
[2019-07-27] MEDS: POTASSIUM CHLORIDE / WTR 10 MEQ/100 ML PLCT IV SCH ×2 (22:53→23:54)
[2019-07-27] MEDS: TAMSULOSIN HCL 0.4 MG CAP PO SCH (22:58)
[2019-07-27] MEDS: FINASTERIDE 5 MG TAB PO SCH (22:58)
[2019-07-27] MEDS: PRAVASTATIN SOD 40 MG TAB PO SCH (22:58)
[2019-07-27 23:12] LABS: Influenza A virus by PCR Neg for Influ A (Neg); Influenza B virus by PCR Neg for Influ B (Neg)
[2019-07-28] MEDS: MAGNESIUM SULFATE / D5W 1 GM/100 ML BAG IV SCH (00:26)
[2019-07-28] MEDS ORDERED: PIPERACILL/TAZOBAC CONSULT ACTIVE PRN ×2 (04:54→09:00)
[2019-07-28 05:49] LABS: Hematocrit (blood only) 31.4 % (42-52); Hemoglobin 10.3 g/dL (14.0-18.0); Immature Granulocytes # (auto) 0.07 K/uL (0.00-0.02); Immature Granulocytes % (auto) 0.5 %; Lymphocytes % (auto) 4.2 %; Mean Corpuscular Hemoglobin 30.5 pg (25-34); Mean Corpuscular Hgb Conc 32.8 g/dL (32-36); Mean Corpuscular Volume 92.9 fL (80-100); Mean Platelet Volume 11.1 fL (7.4-10.4); Monocytes # (auto) 0.29 K/uL (0.11-0.59); Neutrophils # (auto) 13.37 K/uL (1.4-6.5); Neutrophils % (auto) 93.3 %; Platelet Count 141 K/uL (130-400); RDW Coefficient of Variation 16.5 % (11.5-14.5); RDW Standard Deviation 55.6 fL (36.4-46.3); Red Blood Count 3.38 M/uL (4.7-6.1); White Blood Count 14.33 K/uL (4.8-10.8)
[2019-07-28] MEDS ORDERED: GADOBUTROL 65ML VIAL IV PRN (06:14)
[2019-07-28 06:29] LABS: BUN Creatinine Ratio 23.3 (10-20); Calcium 7.6 mg/dl (8.5-10.1); Est GFR (African American) 83.8; Est GFR (Non-African American) 72.3; Magnesium 2.2 mg/dl (1.8-2.4); Potassium 3.4 mmol/L (3.5-5.1)
--- NOTE | 2019-07-28 06:42 | Magnetic Resonance Report ---
MR brain wo/w con HISTORY: 83 years-old Male abn ct head acute vision changes with history of esophageal cancer. COMPARISON: Head CT 07/27/2019, PET CT 07/21/2019 TECHNIQUE: Multiplanar multisequence MRI of the brain was obtained both with and without the use of 5 .5 mL Gadavist FINDINGS: Slightly increased diffusion-weighted signal of the bilateral thalami as noted on images 12 and 13 of series 5 are favored be artifactual with tiny subacute infarcts considered less likely. Multifocal a reas of restricted diffusion involving the right greater than left occipital lobes with decreased sig nal on the ADC map are compatible with areas of acute to subacute infarction. The largest focus withi n the right occipital lobe measures up to 4.6 cm. Additional areas of restricted diffusion are noted within the inferior right temporal lobe and mid right cerebellar hemisphere. No acute intracranial he morrhage, midline shift, abnormal extra axial collection or hydrocephalus. The study is motion degrad ed. Age-related involutional changes. Extensive patchy white matter hypodensities suggest chronic severino rovascular ischemic disease. No enhancing intra-axial or extra-axial lesions identified. The major flow voids at the level of the skull base appear patent. Mastoid air cells are clear. Mucos al thickening of the paranasal sinuses, mild to moderate. Orbits, skull and soft tissues are within n ormal limits. IMPRESSION: 1. Multifocal areas of acute to subacute infarction involve the right greater than left bilateral occ ipital lobes, and right temporal lobe with additional small infarct of the right posterior lateral mi d cerebellar hemisphere. 2. Age-related involutional changes with chronic microvascular ischemic disease. 3. No abnormal enhancement to suggest intracranial metastasis. The above report was generated using voice recognition software. It may contain grammatical, syntax o r spelling errors. Electronically signed by: Ahsan Victoria M.D. 07/28/2019 6:41 AM
[2019-07-28] MEDS: PIPERACILLIN/TAZOBACTAM 3.375 GM in DEXTROSE 5% 100 ML IV SCH ×3 (06:45→22:46)
[2019-07-28 07:48] LABS: Estimated Average Glucose 126 mg/dl
[2019-07-28] MEDS: INSULIN ASPART 100 UNITS/ML 3 ML PEN SC SCH ×4 (08:02→22:13)
[2019-07-28] MEDS: ENALAPRIL MALEATE 10 MG TAB PO SCH (08:03)
[2019-07-28] MEDS: FLUTICASONE PROPIONATE NA SPR 16 GM BTL SCH (08:03)
[2019-07-28] MEDS: PANTOprazole 40 MG TAB PO SCH (08:03)
[2019-07-28] MEDS ORDERED: NON-FORMULARY MEDICATION (Omeprazole 20 MG) PO SCH (09:00)
--- NOTE | 2019-07-28 10:58 | Gastrointestinal Consultation ---
Date of Consultation July 28, 2019 Assessment & Plan (1) Dysphagia: His report of vomiting back liquids when he is trying to eat or drink likely represents occlusion of the esophagus by food due to the GE junction tumor. He is at increased risk for complications from sedation due to recent CVA. Will try to assess need for possible esophageal stenting by having pt undergo UGI. Plan: 1. UGI with Optiva contrast (high risk for aspiration). 2. Though he is at high risk for bleeding from the tumor, because no current GI bleeding and Hb is stable at 10, it is reasonable to start ASA and Plavix for CVA and would hold if any gross GI bleeding. 3. For now, please keep pt on a full liquid diet. Present on Admission?: Yes Supervising Physician Co-Signing Physician Notes I saw and evaluated the patient. We are consulted for evaluation of dysphasia. The patient does have a history of underlying esophageal adenocarcinoma and did respond to chemotherapy in the past. Unfortunately it appears that he had a stroke prior to admission. Physical examination Thin male in no obvious distress Impression Patient with a history of esophageal cancer now with worsening dysphagia. Normally would offer upper endoscopy and potential esophageal stent placement, unfortunately I think we should obtain guidance from neurology as to when we can do an elective procedure per Recommendations Upper GI series today Please obtain neurology consultation with regard to timing of a procedure for this patient. History of Present Illness Reason for Consultation: Progressive dysphagia, regurgitation Requesting Physician: Dr. Dillon Attending Physician: Erasmo Fox MD History of Present Illness Ms. Noble Guzman is an 83 yr old male with esophageal adenocarcinoma, with mets to the liver, in the setting of HTN, Hyperlipidemia, DM-2. CKD-3. He was brought to the ED yesterday for acute confusion. GI is consulted for progressive dysphagia. Regarding the confusion, MRI today suggests multifocal acute and subacute CVAs. ASA was started. Plavix is being considered. This morning he is alert, oriented and able to provide a hx. Regarding the esophageal adenocarcinoma, this was dx'ed on EGD by Dr. Aiken in December 2018. PET scan with liver mets. The mass is located at the GE junction and at that time was non oclusive, narrowing about 1/2 of the lumen. He is undergoing chemo (no surgery or radiation). His dysphagia began several months ago. He describes being about to swallow (no coughing, gagging or spewing) but, after swallowing liquids or solids, he begins to feel that the food is "not going anywhere," then he vomits up liquid and or dry heaves. He denies any nausea and has not had hematemesis, melena or hematochezia. No abdominal pain. He has lost about 50 lbs ini 2018. Allergies Allergy/AdvReac Type Severity Reaction Status Date / Time Sulfa (Sulfonamide Allergy Severe Rash Verified 07/27/19 18:36 Antibiotics) cephalexin [From Keflex] Allergy Intermediate Rash Verified 07/28/19 06:17 Home Medications Home Medications Medication Instructions Recorded Confirmed Type enalapril maleate [Vasotec] 10 mg PO QAM 01/13/19 07/27/19 History finasteride [Proscar] 5 mg PO QPM 01/13/19 07/27/19 History pravastatin [Pravachol] 40 mg PO HS 01/13/19 07/27/19 History ranitidine HCl [Acid Control 150 mg PO BID 01/13/19 07/27/19 History (ranitidine)] tamsulosin [Flomax] 0.4 mg PO HS 01/13/19 07/27/19 History ondansetron HCl [Zofran] 8 mg PO Q8 PRN 03/23/19 07/27/19 History prochlorperazine maleate 10 mg PO Q6H PRN 03/23/19 07/27/19 History dexamethasone 12 mg PO DIRECTED 06/15/19 07/27/19 History fluticasone propionate 2 spray INTRANASAL DAILY 06/15/19 07/27/19 History lorazepam 0.5 mg PO TID PRN 06/15/19 07/27/19 History oxycodone 5 mg PO Q6H PRN 06/15/19 07/27/19 History pantoprazole 40 mg PO DAILY 06/15/19 07/27/19 History Patient History Medical History BPH (benign prostatic hyperplasia) (Chronic) 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) Aortic valve stenosis (Chronic) Moderate - STACEY: 1.4 cm2, Ao mean PG 17.4 mmHg Chronic kidney disease (CKD) (Chronic) Chronic rhinitis (Chronic) 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) Diaphragmatic hernia (Chronic) Dyslipidemia (Chronic) Esophageal reflux (Chronic) Hypertension (Chronic) Hypertrophic and atrophic condition of skin (Chronic) Insomnia (Chronic) Microalbuminuria (Chronic) TIA (transient ischemic attack) (Resolved) Question 1996 Cardiac murmur Hyperlipidemia Kidney stones Surgical History History of esophagogastroduodenoscopy (EGD) (Resolved) 12/09/18 & 01/13/19 History of appendectomy (Resolved) Age 16 History of anesthesia reaction UNABLE TO URINATE S/P EGD (BELIEVES IT WAS THE ANESTHESIA) AND HAD TO COME TO [facility] EMERGENCY ROOM FOR A SCOTT CATH X2 DAYS. History of colonoscopy History of cystoscopy WITH ATTEMPTED STONE EXTRACTION Family History Mother , Passed age 67 of gallbladder surgery No problems noted. Father , Passed age 86 from complications of fall (bloodclot) No problems noted. Sister , Passed age 63 of [place] No problems noted. Sister , Passed age 71 of "cancer of the blood" No problems noted. Sister , Passed age 89 of "bleeding ulcers" No problems noted. Daughter No problems noted. Daughter No problems noted. 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 Feels Safe at Home: Yes Safety Concerns: Feels Safe At This Time Smoking Status: Former smoker Tobacco Type: cigarettes ; packs per day: 1 ; Cigarettes Per Day: 1 PPD X 30 YEARS AGO ; Second Hand Exposure: No ; Hx Alcohol Use: No Hx Substance Use: No Childhood Exposure to Second-Hand Smoke: Yes caffeine: Yes (2-3 cups of pepsi/day) during the past year weight has: decreased > 10 lbs Dental Care, Regularly: Yes Review of Systems Constitutional: + weakness (chronic) and + weight loss; no fever and no chills Eyes: no problem reported Ear, Nose, Mouth, Throat: no problem reported Respiratory: no cough, no chest congestion and no dyspnea Cardiovascular: no chest pain, no dyspnea and no syncope Gastrointestinal: + vomiting (regurgitation during eating/drinking); no abdominal pain, no bloating, no early satiety, no nausea, no hematemesis and no pain with swallowing Musculoskeletal: no back pain Integumentary: no rash and no axillary lymphadenopathy Physical Exam Constitutional: WD/WN, vitals as above + ill appearing and + thin Eyes: PERRL, conjunctivae normal, anicteric sclerae ENMT: external ear and nose normal, oropharynx normal Neck: trachea midline, no thyromegaly Respiratory: normal respiratory effort, lungs clear to auscultation Auscultation: + diminished lung sounds (at both bases) Cardiovascular: Rate/Rhythm: regular rate and regular rhythm 2/6 systolic murmur Gastrointestinal (Abdomen): Inspection/Auscultation: abdomen normal to inspection (except very thin) Percussion/Palpation: abdomen soft; abdomen nontender Skin: no rashes, warm and dry + turgor decreased Neurologic: PERRL, EOMI, accommodation nl, no face palsy, no dysarthria no focal motor deficits Speech / Cognition: normal speech Motor/Sensory: no tremor Psychiatric: A+Ox3, euthymic affect Lymphatic: no cervical or axillary lymphadenopathy Results & Data Vital Signs (Past 12 Hours) Vital Signs Temp Pulse Resp BP Pulse Ox 07/28/19 09:31 36.5 C 69 18 147/71 H 95 07/28/19 07:58 73 159/67 H 91 07/28/19 03:00 36.6 C 80 18 141/73 H 91 07/27/19 22:38 36.7 C 75 20 135/65 92 Laboratory Results wBC 14, Hb 10, Hct 31, Platelets 141, Na 145, K 3.4, glucose 107. Diagnostic Findings CT: 07/28/10 1. Right occipital lobe lesion is favored to represent a metastasis. Acute to subacute stroke is considered less likely. A second lesion may also be present in the right temporal lobe. These are be better demonstrated with contrast- enhanced brain MRI. 2. Chronic small vessel ischemic change. 3. No hemorrhag MRI: 07/27/19 1. Multifocal areas of acute to subacute infarction involve the right greater than left bilateral occipital lobes, and right temporal lobe with additional small infarct of the right posterior lateral mid cerebellar hemisphere. 2. Age-related involutional changes with chronic microvascular ischemic disease. 3. No abnormal enhancement to suggest intracranial metastasis.
[2019-07-28] MEDS: POTASSIUM CHLORIDE / WTR 10 MEQ/100 ML PLCT IV SCH ×2 (11:13→14:46)
--- NOTE | 2019-07-28 11:37 | Hospitalist Progress Note ---
Date of Service July 28, 2019 Assessment & Plan (1) Acute CVA (cerebrovascular accident): Present on admission with altered mental status CT head showed right occipital lobe lesion is favored to represent a metastasis and a second lesion may also be present in the right temporal lobe. MRI brain showed multifocal areas of acute to subacute infarction involve the right greater than left bilateral occipital lobes, and right temporal lobe with additional small infarct of the right posterior lateral mid cerebellar hemisphere. No abnormal enhancement to suggest intracranial metastasis. Will consult neurology Will get ECHO and carotid doppler Speech eval done Continue PT/OT Case discussed with GI about plavix and aspirin due to risk of GI bleed Since GI bleeding and Hbg is stable, it is reasonable to start ASA and Plavix from GI standpoint Case discussed with Oncology Dr. Garcia and ok to continue aspirin and plavix for now Dr. 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 Case discussed with Oncology about anticoagulant Dr. Garcia said that his cancer responding very well with chemotherapy and the mass is shrinking on his last scan Dr. Garcia recommended to continue Aspirin and plavix for now He wants to hold on anticoagulant since his platelet might drop during chemotherapy He would evaluate him as an outpatient and decide about to start him on Eliquis DVT px on SCDs (due to high risk of GI bleeding in the setting of plavix and aspirin) CODE STATUS FULL CODE Subjective Pt was seen and examined. Lying in bed with no distress. Pt said that he feels fine He said that he was able to tolerate his diet. He walked with therapy today Pt said that in the past few days he had some vision changed that he noticed while watching TV Denies any chest pain, palpitation, dizziness and SOB Physical Exam Physical Exam: General- No acute distress, underweight Head- atraumatic Eyes- PERRL, EOMI, ENT- oropharynx clear Neck- supple, no JVD Lungs- clear to auscultation Heart- regular rhythm Abdomen- normal bowel sounds, soft, nontender Extremities- no calf tenderness Neuro- alert, oriented x 3; PERRL, EOMI; no facial palsy; no dysarthria Skin- warm & dry Results & Data Vital Signs (Past 12 Hours) Vital Signs Temp Pulse Resp BP Pulse Ox 07/28/19 09:31 36.5 C 69 18 147/71 H 95 07/28/19 07:58 73 159/67 H 91 07/28/19 03:00 36.6 C 80 18 141/73 H 91
--- NOTE | 2019-07-28 14:12 | Ultrasound Report ---
ULTRASOUND OF THE CAROTID ARTERIES CLINICAL HISTORY: acute CVA COMPARISON STUDY: None. TECHNIQUE: Real-time, grayscale, and color Doppler sonography of the carotid arteries was performed. Imaging reviewed in the transverse and longitudinal planes. NASCET criteria was utilized for stenosis calcification. FINDINGS: There is mild to moderate atherosclerotic plaque present . The peak systolic velocity within the right internal carotid artery is 74 cm/sec. The systolic velocity ratio of right internal to common carotid artery is 2.1. There is a less than 5 0% right ICA stenosis. The peak systolic velocity within the left internal carotid artery is 87 cm/sec. The systolic velocity ratio left internal to common carotid artery is 1.5. Antegrade flow is seen in the vertebral arteries. The external carotid arteries are patent. IMPRESSION: 1. Moderate atheromatous change. No evidence of hemodynamically significant carotid stenosis Electronically signed by: Tad Castro M.D. 07/28/2019 2:11 PM
[2019-07-28] MEDS: CLOPIDOGREL BISULFATE 75 MG TAB PO SCH (14:46)
[2019-07-28] MEDS: ASPIRIN 81 MG ECTAB PO SCH (14:47)
--- NOTE | 2019-07-28 15:25 | Neurology Consultation ---
Date of Consultation July 28, 2019 Assessment & Plan (1) Acute CVA (cerebrovascular accident): 1. MRI - right occipital parital infarct 2. was not on aspirin or plavix prior to stroke- aspirin 81 mg and plavix 75 mg ok'd by GI- stop for any gross bleeding 3. if not contra indication CTA head /neck for evaluation of posterior circulation 4. optimize HTN, HLD, DM LDL <70 consider patients age 5. PT/OT speech for discharge needs 6. GI/oncology for continuation of treatment and whether hypercoag state with CA may need lovenox rather than plavix/aspirin Supervising Physician Co-Signing Physician Notes I have seen and discussed above patient with Dr Sneha Pineda, neurology. Hx reviewed. MRI cw bl anterior and post acute infarct. Exam notable for L supero and infer temp field cut with mild L LE weakness. Awake alert, no RL confusion. Imp bl infarct. ASA and Plavix for now. CTA head and neck, echo, tele. Rec dw with oncology. Pt may have an underlying hypercoag state and may require anticoagulants. FAVIAN Pineda MD History of Present Illness Reason for Consultation: acute CVA Requesting Physician: Erasmo Fox MD Attending Physician: Erasmo Fox MD History of Present Illness Noble is a 83 year old male with PMH- GE junction carcinoma and a benign prostatic hyperplasia, presents to [facility] with complaints of confusion. He was unable to find any one of the three bathrooms in his house. He has intermittent urinary burning and diarrhea, and swallowing issues which have been ongoing. He lives with his and confirms he has esophageal cancer that has me tastasized. He is getting chemotherapy for the CA. He has had a weight loss due to the difficulty swallowing.denies CP, SOB, abdominal pain, one sided weakness, numbness tingling, N, V, +vision changes Allergies Allergy/AdvReac Type Severity Reaction Status Date / Time Sulfa (Sulfonamide Allergy Severe Rash Verified 07/27/19 18:36 Antibiotics) cephalexin [From Keflex] Allergy Intermediate Rash Verified 07/28/19 06:17 Home Medications Home Medications Medication Instructions Recorded Confirmed Type enalapril maleate [Vasotec] 10 mg PO QAM 01/13/19 07/27/19 History finasteride [Proscar] 5 mg PO QPM 01/13/19 07/27/19 History pravastatin [Pravachol] 40 mg PO HS 01/13/19 07/27/19 History ranitidine HCl [Acid Control 150 mg PO BID 01/13/19 07/27/19 History (ranitidine)] tamsulosin [Flomax] 0.4 mg PO HS 01/13/19 07/27/19 History ondansetron HCl [Zofran] 8 mg PO Q8 PRN 03/23/19 07/27/19 History prochlorperazine maleate 10 mg PO Q6H PRN 03/23/19 07/27/19 History dexamethasone 12 mg PO DIRECTED 06/15/19 07/27/19 History fluticasone propionate 2 spray INTRANASAL DAILY 06/15/19 07/27/19 History lorazepam 0.5 mg PO TID PRN 06/15/19 07/27/19 History oxycodone 5 mg PO Q6H PRN 06/15/19 07/27/19 History pantoprazole 40 mg PO DAILY 06/15/19 07/27/19 History Patient History Medical History BPH (benign prostatic hyperplasia) (Chronic) 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) Aortic valve stenosis (Chronic) Moderate - STACEY: 1.4 cm2, Ao mean PG 17.4 mmHg Chronic kidney disease (CKD) (Chronic) Chronic rhinitis (Chronic) 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) Diaphragmatic hernia (Chronic) Dyslipidemia (Chronic) Esophageal reflux (Chronic) Hypertension (Chronic) Hypertrophic and atrophic condition of skin (Chronic) Insomnia (Chronic) Microalbuminuria (Chronic) TIA (transient ischemic attack) (Resolved) Question 1996 Cardiac murmur Hyperlipidemia Kidney stones Surgical History History of esophagogastroduodenoscopy (EGD) (Resolved) 12/09/18 & 01/13/19 History of appendectomy (Resolved) Age 16 History of anesthesia reaction UNABLE TO URINATE S/P EGD (BELIEVES IT WAS THE ANESTHESIA) AND HAD TO COME TO [facility] FOR A SCOTT CATH X2 DAYS. History of colonoscopy History of cystoscopy WITH ATTEMPTED STONE EXTRACTION Family History Mother , Passed age 67 of gallbladder surgery No problems noted. Father , Passed age 86 from complications of fall (bloodclot) No problems noted. Sister , Passed age 63 of PA No problems noted. Sister , Passed age 71 of "cancer of the blood" No problems noted. Sister , Passed age 89 of "bleeding ulcers" No problems noted. Daughter No problems noted. Daughter No problems noted. 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 Feels Safe at Home: Yes Safety Concerns: Feels Safe At This Time Smoking Status: Former smoker Tobacco Type: cigarettes ; packs per day: 1 ; Cigarettes Per Day: 1 PPD X 30 YEARS AGO ; Second Hand Exposure: No ; Hx Alcohol Use: No Hx Substance Use: No Childhood Exposure to Second-Hand Smoke: Yes caffeine: Yes (2-3 cups of pepsi/day) during the past year weight has: decreased > 10 lbs Dental Care, Regularly: Yes Physical Exam 2 Physical Exam: Physical Exam: Constitutional: appearance thin ill appearing male Ears, Nose, Mouth and Throat: mucous membranes moist, no injection and skin n ormal, eyes normal, several visible nodules upper chest Cardiovascular: normal S-1 and S-2 and regular rate and rhythm Respiratory: course breath sounds Musculoskeletal: no peripheral edema Skin: no stigmata of neurocutaneous disease noted and normal and intact Eyes: extraocular muscles intact (EOMI) and pupils equal, round and reactive to light (PERRL), unable to tract to the left, left hemianopsia NEUROLOGIC EXAMINATION: Mental status: Alert and interactive Oriented to full date and location Oriented to person Speech course speech no slurring of speech Cranial Nerves facial symmetry, eye brow symmetric Reflexes: Deep tendon reflexes were symmetrical Sensory: intact to light and cool touch Coordination: finger to nose no bi pass, unable to see finger in left lateral field Gait/Stance: Posture sitting up in bed Strength: Normal - hand mobile tester biceps triceps 4+/5, hip flex 4+/5 bilaterally plantar flex ext 5/5 Results & Data Vital Signs (Past 12 Hours) Vital Signs Temp Pulse Pulse Resp BP BP Pulse Ox 07/28/19 13:22 90 07/28/19 11:58 89 07/28/19 11:44 36.5 C 64 18 137/75 95 07/28/19 09:31 36.5 C 69 18 147/71 H 95 07/28/19 08:00 84 07/28/19 07:58 73 159/67 H 91 Laboratory Results Abnormal lab results 07/27/19 07/27/19 07/27/19 Range/Units 18:00 18:00 18:00 WBC 16.17 H (4.8-10.8) K/uL RBC 3.99 L (4.7-6.1) M/uL Hgb 12.2 L (14.0-18.0) g/dL Hct 37.4 L (42-52) % RDW Std Deviation 56.8 H (36.4-46.3) fL RDW Coeff of Julian 16.6 H (11.5-14.5) % MPV 12.1 H (7.4-10.4) fL Immature Gran # (Auto) 0.06 H (0.00-0.02) K/uL Neut # (Auto) 15.35 H (1.4-6.5) K/uL Lymph # (Auto) 0.36 L (1.2-3.4) K/uL PT 12.2 H (9.0-12.0) Seconds INR 1.2 H (0.9-1.1) Sodium 148 H (136-145) mmol/L Potassium 3.3 L (3.5-5.1) mmol/L Chloride 112 H (98-107) mmol/L BUN 24 H (7-18) mg/dl BUN/Creatinine Ratio (10-20) Glucose 111 H (70-99) mg/dl POC Glucose (70-99) Hemoglobin A1c (4.5-5.6) % Lactate (0.4-2.0) mmol/L Calcium 8.2 L (8.5-10.1) mg/dl Magnesium 1.4 L (1.8-2.4) mg/dl Troponin I 0.070 H* (0-0.045) ng/ml Albumin 2.8 L (3.4-5.0) gm/dl Albumin/Globulin Ratio 0.8 L (0.9-2) Urine Appearance (Clear) Urine Protein (Negative) Urine Blood (Negative) Ur Leukocyte Esterase (Negative) Urine WBC (Auto) (0-5) /hpf Urine RBC (Auto) (0-4) /hpf U Epithel Cells (Auto) (0-5) /lpf Urine Bacteria (Auto) (Negative) 07/27/19 07/27/19 07/27/19 Range/Units 18:00 18:51 21:15 WBC (4.8-10.8) K/uL RBC (4.7-6.1) M/uL Hgb (14.0-18.0) g/dL Hct (42-52) % RDW Std Deviation (36.4-46.3) fL RDW Coeff of Julian (11.5-14.5) % MPV (7.4-10.4) fL Immature Gran # (Auto) (0.00-0.02) K/uL Neut # (Auto) (1.4-6.5) K/uL Lymph # (Auto) (1.2-3.4) K/uL PT (9.0-12.0) Seconds INR (0.9-1.1) Sodium (136-145) mmol/L Potassium (3.5-5.1) mmol/L Chloride (98-107) mmol/L BUN (7-18) mg/dl BUN/Creatinine Ratio (10-20) Glucose (70-99) mg/dl POC Glucose (70-99) Hemoglobin A1c 6.0 H (4.5-5.6) % Lactate 2.2 H* (0.4-2.0) mmol/L Calcium (8.5-10.1) mg/dl Magnesium (1.8-2.4) mg/dl Troponin I (0-0.045) ng/ml Albumin (3.4-5.0) gm/dl Albumin/Globulin Ratio (0.9-2) Urine Appearance Turbid A (Clear) Urine Protein 2+ H (Negative) Urine Blood 2+ H (Negative) Ur Leukocyte Esterase 3+ H (Negative) Urine WBC (Auto) >30 H (0-5) /hpf Urine RBC (Auto) 5-10 H (0-4) /hpf U Epithel Cells (Auto) 20-30 H (0-5) /lpf Urine Bacteria (Auto) 4+ H (Negative) 07/27/19 07/27/19 07/28/19 Range/Units 22:09 22:27 05:31 WBC (4.8-10.8) K/uL RBC (4.7-6.1) M/uL Hgb (14.0-18.0) g/dL Hct (42-52) % RDW Std Deviation (36.4-46.3) fL RDW Coeff of Julian (11.5-14.5) % MPV (7.4-10.4) fL Immature Gran # (Auto) (0.00-0.02) K/uL Neut # (Auto) (1.4-6.5) K/uL Lymph # (Auto) (1.2-3.4) K/uL PT (9.0-12.0) Seconds INR (0.9-1.1) Sodium 146 H (136-145) mmol/L Potassium 3.4 L (3.5-5.1) mmol/L Chloride 114 H (98-107) mmol/L BUN 22 H (7-18) mg/dl BUN/Creatinine Ratio 23.3 H (10-20) Glucose 107 H (70-99) mg/dl POC Glucose 114 H (70-99) Hemoglobin A1c (4.5-5.6) % Lactate (0.4-2.0) mmol/L Calcium 7.6 L (8.5-10.1) mg/dl Magnesium (1.8-2.4) mg/dl Troponin I 0.051 H* (0-0.045) ng/ml Albumin (3.4-5.0) gm/dl Albumin/Globulin Ratio (0.9-2) Urine Appearance (Clear) Urine Protein (Negative) Urine Blood (Negative) Ur Leukocyte Esterase (Negative) Urine WBC (Auto) (0-5) /hpf Urine RBC (Auto) (0-4) /hpf U Epithel Cells (Auto) (0-5) /lpf Urine Bacteria (Auto) (Negative) 07/28/19 07/28/19 Range/Units 05:31 11:29 WBC 14.33 H (4.8-10.8) K/uL RBC 3.38 L (4.7-6.1) M/uL Hgb 10.3 L (14.0-18.0) g/dL Hct 31.4 L (42-52) % RDW Std Deviation 55.6 H (36.4-46.3) fL RDW Coeff of Julian 16.5 H (11.5-14.5) % MPV 11.1 H (7.4-10.4) fL Immature Gran # (Auto) 0.07 H (0.00-0.02) K/uL Neut # (Auto) 13.37 H (1.4-6.5) K/uL Lymph # (Auto) 0.60 L (1.2-3.4) K/uL PT (9.0-12.0) Seconds INR (0.9-1.1) Sodium (136-145) mmol/L Potassium (3.5-5.1) mmol/L Chloride (98-107) mmol/L BUN (7-18) mg/dl BUN/Creatinine Ratio (10-20) Glucose (70-99) mg/dl POC Glucose 109 H (70-99) Hemoglobin A1c (4.5-5.6) % Lactate (0.4-2.0) mmol/L Calcium (8.5-10.1) mg/dl Magnesium (1.8-2.4) mg/dl Troponin I (0-0.045) ng/ml Albumin (3.4-5.0) gm/dl Albumin/Globulin Ratio (0.9-2) Urine Appearance (Clear) Urine Protein (Negative) Urine Blood (Negative) Ur Leukocyte Esterase (Negative) Urine WBC (Auto) (0-5) /hpf Urine RBC (Auto) (0-4) /hpf U Epithel Cells (Auto) (0-5) /lpf Urine Bacteria (Auto) (Negative) Diagnostic Findings CXR-Interval development of a right mid to upper lung dense infiltrate. This is evidence of pneumonia. This is new from recent PET/CT. Mild cardiomegaly. Hyperinflation may suggest underlying emphysema or other obstructive lung disease. CT head- Right occipital lobe lesion is favored to represent a metastasis. Acute to subacute stroke is considered less likely. A second lesion may also be present in the right temporal lobe. These are be better demonstrated with contrast-enhanced brain MRI. Chronic small vessel ischemic change. No hemorrhage. MRI brain- Multifocal areas of acute to subacute infarction involve the right greater than left bilateral occipital lobes, and right temporal lobe with additional small infarct of the right posterior lateral mid cerebellar hemisphere. Age-related involutional changes with chronic microvascular ischemic disease. No abnormal enhancement to suggest intracranial metastasis. carotid doppler- Moderate atheromatous change. No evidence of hemodynamically significant carotid stenosis
[2019-07-28] MEDS ORDERED: ERTAPENEM SODIUM 1,000 MG in SODIUM CHLORIDE 0.9% 50 ML IV SCH (20:00)
[2019-07-28] MEDS: PRAVASTATIN SOD 40 MG TAB PO SCH (20:27)
[2019-07-28] MEDS: FINASTERIDE 5 MG TAB PO SCH (20:27)
[2019-07-28] MEDS: TAMSULOSIN HCL 0.4 MG CAP PO SCH (20:27)
[2019-07-29] MEDS: PIPERACILLIN/TAZOBACTAM 3.375 GM in DEXTROSE 5% 100 ML IV SCH ×3 (06:14→21:32)
[2019-07-29 06:34] LABS: Hematocrit (blood only) 33.9 % (42-52); Hemoglobin 10.9 g/dL (14.0-18.0); Mean Corpuscular Hemoglobin 30.2 pg (25-34); Mean Corpuscular Hgb Conc 32.2 g/dL (32-36); Mean Corpuscular Volume 93.9 fL (80-100); Mean Platelet Volume 11.7 fL (7.4-10.4); Platelet Count 151 K/uL (130-400); RDW Coefficient of Variation 16.6 % (11.5-14.5); RDW Standard Deviation 56.9 fL (36.4-46.3); Red Blood Count 3.61 M/uL (4.7-6.1); White Blood Count 10.99 K/uL (4.8-10.8)
[2019-07-29 07:18] LABS: BUN Creatinine Ratio 19.2 (10-20); Est GFR (African American) 84.9; Est GFR (Non-African American) 73.2; Potassium 3.6 mmol/L (3.5-5.1)
--- NOTE | 2019-07-29 07:49 | Gastroenterology Progress Note ---
Date of Service July 29, 2019 Assessment & Plan (1) Dysphagia: His report of vomiting back liquids when he is trying to eat or drink likely represents occlusion of the esophagus by food due to the GE junction tumor. He is at increased risk for complications from sedation due to recent CVA. Will try to assess need for possible esophageal stenting by having pt undergo UGI. Plan: 1. Will address UGI series and make recommendation for/against stenting of the esophagus after UGI results are available. Ideally, best to avoid EGD in the short term due to acute CVA. Addendum: UGI without clear cause of symptoms. Would progress to EGD if cleared by neurology. If not cleared then slippery diet, small amts of food, eat very slowly and EGD later as outpatient at interval to be decided by neurology. Present on Admission?: Yes Supervising Physician Co-Signing Physician Notes I saw and evaluated the patient. I did discuss the case with neurology and given the patient's recent stroke and upper endoscopy may be too high risk given his present symptoms. We would recommend continued use of a proton pump inhibitor, protonix 40 mg 1 time daily and a dysphasia diet Please call with any additional questions or concerns during the remainder the patient's hospital stay. GI to sign off for the present time Subjective Mr. Noble Guzman is an 83 yr old male with lower esophageal adenocarcinoma with mets to the liver undergoing chemotherapy who was admitted on 07/27 for confusion. MRI with acute and sub acute stroke/s. Also UTI, pneumonia. GI consulted for dysphagia, unable to complete EGD due to recent CVA. UGI ordered yesterday, not yet completed. Pt awake, alert, oriented, w/o any abdominal pain. Has been NPO or liquids only so no dysphagia since arrival. INR 1.2 and not anticoagulated. Review of Systems Constitutional: + weakness (chronic) and + weight loss; no fever and no chills Gastrointestinal: + vomiting (regurgitation during eating/drinking); no abdominal pain, no bloating, no early satiety, no nausea, no hematemesis and no pain with swallowing Genitourinary: + urinary hesitancy (chronic); no dysuria and no urinary frequency Integumentary: no rash and no pruritus Neurologic: + unsteadiness; no abnormal speech, no confusion and no memory loss Endocrine: + fatigue Allergy / Immunological: no GI upset with certain foods, no cough, no dyspnea and no rash Physical Exam Constitutional: WD/WN, vitals as above + ill appearing and + thin Eyes: PERRL, conjunctivae normal, anicteric sclerae ENMT: external ear and nose normal, oropharynx normal Neck: trachea midline, no thyromegaly Respiratory: normal respiratory effort, lungs clear to auscultation Auscultation: + diminished lung sounds (at both bases) Cardiovascular: Rate/Rhythm: regular rate and regular rhythm Gastrointestinal (Abdomen): Inspection/Auscultation: abdomen normal to inspection (except very thin) Percussion/Palpation: abdomen soft; abdomen nontender Skin: no rashes, warm and dry + turgor decreased Neurologic: PERRL, EOMI, accommodation nl, no face palsy, no dysarthria no focal motor deficits Speech / Cognition: normal speech Motor/Sensory: no tremor Psychiatric: A+Ox3, euthymic affect Lymphatic: no cervical or axillary lymphadenopathy Results & Data Vital Signs (Past 12 Hours) Vital Signs Temp Pulse Pulse Resp BP Pulse Ox 07/29/19 07:08 36.8 C 70 16 163/67 H 95 07/29/19 04:00 37.3 C 71 18 107/67 91 07/28/19 23:12 36.6 C 68 19 162/70 H 94 07/28/19 22:20 73 Laboratory Results Hb 10.9, INR 1.2.
[2019-07-29] MEDS: INSULIN ASPART 100 UNITS/ML 3 ML PEN SC SCH ×4 (08:38→22:05)
[2019-07-29] MEDS ORDERED: OPTIRAY 320 125ml IV PRN (09:48)
--- NOTE | 2019-07-29 09:59 | CT Scan Report ---
HEAD CTA HISTORY: Acute CVA TECHNIQUE: Multiaxial CT images of the head were performed both before and after the intravenous admi nistration of contrast to evaluate the major cerebral vessels. Maximum intensity projection images we re also obtained. A dose lowering technique was utilized adhering to the principles of ALARA. COMPARISON: None. FINDINGS: Mild mucosal thickening within the ethmoid air cells. The mastoid air cells are clear. The calvarium and skull base are intact. Atrophy and moderate microvascular ischemic changes are again no jus. There is no mass, hematoma, midline shift. Progressive hypodensity within the right temporal and bilateral occipital lobe infarcts consistent with expected evolution of the subacute infarcts. No ne w infarcts identified. No evidence for hemorrhagic transformation at this time. There is also progres sive hypodensity within the left thalamic lacunar infarct consistent with expected evolution. This is best seen on image 13. The distal right [employer] branches are attenuated likely corresponding to the john ent's known infarct. The basilar artery is patent. Focal area of high-grade stenosis within the dista l right vertebral artery best seen on image 56 of 265. The distal left vertebral artery is hypoplasti c and terminates into the left posterior inferior cerebellar artery. This is considered to be a adams l variant. Mild multifocal narrowing within the bilateral carotid siphons due to the calcified plaque . The major dural venous sinuses are patent. The bilateral ACAs and MCAs show no significant stenosis or occlusion. No aneurysms identified. IMPRESSION: 1. Progressive hypodensity corresponding to the patient's known bilateral occipital lobe, right tempo ral lobe, and left thalamic infarcts consistent with expected evolution of the subacute infarct. No e vidence for hemorrhagic transformation at this time. 2. The distal right [employer] branches are attenuated likely correspond to the patient's known occipital in farct. 3. Focal area of high-grade stenosis within the distal right vertebral artery. 4. Mild multifocal narrowing within the bilateral carotid siphons due to the calcified plaque. Electronically signed by: Prieto Leal M.D. 07/29/2019 9:58 AM
--- NOTE | 2019-07-29 10:03 | CT Scan Report ---
CT angio neck with con CLINICAL HISTORY: 83 years-old Male with acute CVA. Acute strokelike symptoms COMPARISON STUDY: CTA of the head of same day, chest radiograph 07/27/2019, PET CT 07/21/2019 TECHNIQ UE: Following the IV administration of 120 mL of Optiray 320, CT angiogram of the neck was performed from the aortic arch to the skull base. Images are reviewed in the axial, sagittal, and coronal plane s. 3-D MIPS images are created and assessed. IV contrast was administered without complication. All m easurements were calculated based on NASCET criteria. A dose lowering technique was utilized adherin g to the principles of ALARA. CT DOSE: 1083.31 mGy.cm FINDINGS: Mixed plaque of the thoracic aortic arch. Patent bilateral subclavian arteries. Patent bilateral comm on carotid arteries. Moderate mixed plaque of the bilateral carotid bulbs results in less than 50% teodoro paulo narrowing bilaterally. Extensive calcified plaque of the cavernous segments without high-grade stenosis. Dominant right vertebral artery. 50% luminal narrowing of the proximal V2 segment the level of C6-C7 with additional area of 50% luminal narrowing at the level of C5-C6, both of which are seco ndary to advanced spondylitic spurring and facet arthrosis. There is a focal short segment area of hi gh-grade, approximately 90% luminal narrowing of the V4 segment right vertebral artery, image 365 ser ies 6 which appears to be secondary to mixed plaque. Developmentally diminutive left vertebral artery . The left vertebral artery terminates into the PICA. Visualized basilar artery appears patent. Intralobular septal thickening of the right upper lobe with patchy groundglass and consolidative opac ities. Mild centrilobular emphysema with biapical pleural-parenchymal scarring. Secretions are noted within the airway and esophagus. Mildly prominent paratracheal lymph nodes with a few mildly enlarged right supraclavicular lymph nodes measuring up to 1.0 cm. Diffuse body wall edema with edema of the upper mediastinum. Right IJ [id number] catheter is partially imaged. Multilevel degenerative vallejo es of the spine. IMPRESSION: 1. Focal area of high-grade stenosis involves the V4 segment right vertebral artery. Note that the ri ght vertebral artery is dominant and exclusively forms the basilar artery. 2. Moderate mixed plaque of the bilateral carotid bulbs results in less than 50% luminal narrowing bi laterally. 3. 50% luminal narrowing involving the V2 segment right vertebral artery is noted at the C5-C6 and C6 -C7 level secondary to advanced spondylitic spurring with facet arthrosis. 4. Intralobular septal thickening with patchy groundglass and consolidative opacities of the right up per lobe suggest asymmetric pulmonary edema versus pneumonia with secondary congestive changes. 5. Mild degree of secretions are noted within the airway and esophagus. Correlate clinically to exclu de aspiration. 6. Nonspecific upper mediastinal and supraclavicular adenopathy with diffuse body wall edema. The above report was generated using voice recognition software. It may contain grammatical, syntax o r spelling errors. Electronically signed by: Ahsan Victoria M.D. 07/29/2019 10:02 AM
--- NOTE | 2019-07-29 11:58 | Fluoroscopy Report ---
FL barium swallow CLINICAL HISTORY: Esophageal cancer. Dysphagia. COMPARISON STUDY: None FLUOROSCOPY TIME: 0.9 minutes. NUMBER OF FLUOROSCOPIC IMAGES: 27 FINDINGS: The patient swallowed barium. The esophageal mucosa was somewhat granular raising the possi bility of esophagitis or retained food products. There is a prominent cricopharyngeus impression. The re is narrowing of the distal esophagus the level of the esophagogastric junction, consistent with th e history of a distal carcinoma. There is esophageal dysmotility. 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 No evidence of obstruction 2. Esophageal dysmotility 3. Narrowing of the GE junction, consistent with a history of distal esophageal carcinoma 4. Prominent cricopharyngeus impression 5. Proximal thoracic esophageal web 6. Granular appearance of the esophagus, a finding representing either retained food products or esop hageal erosions. Electronically signed by: Tad Castro M.D. 07/29/2019 11:56 AM
[2019-07-29] MEDS: FLUTICASONE PROPIONATE NA SPR 16 GM BTL SCH (13:31)
[2019-07-29] MEDS: ASPIRIN 81 MG ECTAB PO SCH (13:32)
[2019-07-29] MEDS: CLOPIDOGREL BISULFATE 75 MG TAB PO SCH (13:32)
[2019-07-29] MEDS: PANTOprazole 40 MG TAB PO SCH (13:32)
[2019-07-29] MEDS: ENALAPRIL MALEATE 10 MG TAB PO SCH (13:32)
--- NOTE | 2019-07-29 13:36 | Fluoroscopy Report ---
FL video swallow HISTORY: Aspiration TECHNIQUE: Video fluoroscopic evaluation of swallowing was performed in the AP and lateral projection s by the speech pathology staff. The patient is fed nectar-thick and thin liquid barium, a barium coa jus wafer, and barium pudding. FLUOROSCOPY TIME: 2.5 minutes. NUMBER OF FLUOROSCOPY IMAGES: 0 COMPARISON STUDY: None. FINDINGS: The speech pathologist reported visualizing penetration when swallowing thin liquid and nec tar thick liquids. This is not visualized with certainty on the saved fluoroscopic images. There is n o evidence of aspiration.. Note is made of vallecular residue. There is disordered esophageal motilit y IMPRESSION: 1. Equivocal trace penetration. No evidence of aspiration. 2. Please see the speech pathologist report for detailed findings and recommendations. Electronically signed by: Tad Castro M.D. 07/29/2019 1:35 PM
--- NOTE | 2019-07-29 14:41 | Neurology Progress Note ---
Date of Service July 29, 2019 Assessment & Plan (1) Acute CVA (cerebrovascular accident): 1. MRI - right occipital parital infarct 4. optimize HTN, HLD, DM LDL <70 consider patients age 5. PT/OT speech for discharge needs 6. GI/oncology for continuation of treatment and whether hypercoag state with CA may need lovenox rather than plavix/aspirin- oncology ok with continue of aspirin and plavix and will reevaluate during office visit 7. follow up in neurology 4-6 weeks Sneha Mehta PAC schedule Supervising Physician Co-Signing Physician Notes I have seen and discussed above patient with Dr Sneha Pineda, neurology. Pt seen and examined. Exam is unchanged with a left superior and inferior temporal field cut. Perhaps some minor weakness of the right lower extremity no dystaxia and gait is unremarkable with a walker. Impression multiple posterior circulation infarcts related likely to artery to artery embolism from high-grade right vertebral stenosis. Dual antiplatelet therapy as above. Avoid hypotension. Defer to oncology of this to whether Lovenox would be a better choice although he appears to have atherosclerotic reasons for this infarct. Risk factor modification remains appropriate. We will follow with you. Ghazal Dickey is a 83 year old male with PMH- GE junction carcinoma and a benign prostatic hyperplasia, presents to [facility] ED with complaints of confusion. He was unable to find any one of the three bathrooms in his house. He has intermittent urinary burning and diarrhea, and swallowing issues which have been ongoing. He lives with his and confirms he has esophageal cancer that has metastasized. He is getting chemotherapy for the CA. He has had a weight loss due to the difficulty swallowing.denies Today he states he is doing "ok". he had a swallowing study with no overt aspiration but dysmotility. CP, SOB, abdominal pain, one sided weakness, numbness tingling, N, V, +vision changes Physical Exam Physical Exam: Gen: alert NAD eyes: unable to gaze to left perrl left hemianopsia lungs course breath sounds CV RRR strength hand drum carrier, biceps triceps 5/5 bilaterally, hip flex plantar flex ext 5/5 bilaterally sensation intact to light and cool touch Results & Data Vital Signs (Past 12 Hours) Vital Signs Temp Pulse Pulse Resp BP Pulse Ox 07/29/19 13:30 152/77 H 07/29/19 11:18 36.6 C 63 18 168/72 H 95 07/29/19 08:00 68 07/29/19 07:08 36.8 C 70 16 163/67 H 95 07/29/19 04:00 37.3 C 71 18 107/67 91 Laboratory Results Abnormal lab results 07/28/19 07/29/19 07/29/19 Range/Units 16:30 06:05 06:05 WBC 10.99 H (4.8-10.8) K/uL RBC 3.61 L (4.7-6.1) M/uL Hgb 10.9 L (14.0-18.0) g/dL Hct 33.9 L (42-52) % RDW Std Deviation 56.9 H (36.4-46.3) fL RDW Coeff of Julian 16.6 H (11.5-14.5) % MPV 11.7 H (7.4-10.4) fL Chloride 113 H (98-107) mmol/L POC Glucose 104 H (70-99) Calcium 8.0 L (8.5-10.1) mg/dl 07/29/19 Range/Units 07:33 WBC (4.8-10.8) K/uL RBC (4.7-6.1) M/uL Hgb (14.0-18.0) g/dL Hct (42-52) % RDW Std Deviation (36.4-46.3) fL RDW Coeff of Julian (11.5-14.5) % MPV (7.4-10.4) fL Chloride (98-107) mmol/L POC Glucose 100 H (70-99) Calcium (8.5-10.1) mg/dl Diagnostic Findings CTA head- Progressive hypodensity corresponding to the patient's known bilateral occipital lobe, right temporal lobe, and left thalamic infarcts consistent with expected evolution of the subacute infarct. No evidence for hemorrhagic transformation at this time. The distal right DESKTOP MANAGER branches are attenuated likely correspond to the patient's known occipital infarct. Focal area of high- grade stenosis within the distal right vertebral artery. Mild multifocal narrowing within the bilateral carotid siphons due to the calcified plaque. CTA neck-Focal area of high-grade stenosis involves the V4 segment right vertebral artery. Note that the right vertebral artery is dominant and exclusively forms the basilar artery. Moderate mixed plaque of the bilateral carotid bulbs results in less than 50% luminal narrowing bilaterally. 50% luminal narrowing involving the V2 segment right vertebral artery is noted at the C5-C6 and C6-C7 level secondary to advanced spondylitic spurring with facet arthrosis. Intralobular septal thickening with patchy groundglass and consolidative opacities of the right upper lobe suggest asymmetric pulmonary edema versus pneumonia with secondary congestive changes. Mild degree of secretions are noted within the airway and esophagus. Correlate clinically to exclude aspiration. Nonspecific upper mediastinal and supraclavicular adenopathy with diffuse body wall edema.
--- NOTE | 2019-07-29 18:05 | Hospitalist Progress Note ---
Date of Service July 29, 2019 Assessment & Plan (1) Acute CVA (cerebrovascular accident): Metabolic Encephalopathy Present on admission with altered mental status CT head showed right occipital lobe lesion is favored to represent a metastasis and a second lesion may also be present in the right temporal lobe. MRI brain showed multifocal areas of acute to subacute infarction involve the right greater than left bilateral occipital lobes, and right temporal lobe with additional small infarct of the right posterior lateral mid cerebellar hemisphere. No abnormal enhancement to suggest intracranial metastasis. CTA head done showed focal area of high-grade stenosis within the distal right vertebral artery. CTA neck done showed focal area of high-grade stenosis involves the V4 segment right vertebral artery. ECHO done showed no wall motion abnormality, no shunt and EF 60-65 % Carotid doppler showed moderate atheromatous change. No evidence of hemodynamically significant carotid stenosis Speech on board Continue PT/OT Case discussed with GI about plavix and aspirin due to risk of GI bleed Since GI bleeding and Hbg is stable, it is reasonable to start ASA and Plavix from GI standpoint Case discussed with Oncology Dr. Garcia and ok to continue aspirin and plavix for now Dr. 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 No evidence of aspiration. GI on board was plan for possible esophageal stenting by having pt undergo UGI, but due to acute CVA, will try to arrange outpatient Case discussed with GI and would need clearance from Neurology before proceeding EGD Neurology said that usually wait about 3 months after a CVA to proceed with EGD, but if patient need it sooner, may consider Speech on board case discussed with Speech recommended to advance diet to Full liquid Aspiration precaution Pneumonia Mostly aspiration pneumonia CXR on admission showed Interval development of a right mid to upper lung dense infiltrate. Elevated WBC and Lactic acid on admission Received Levaquin in the ER WBC trending down On IV Zosyn now Blood cx no growth Abnormal UA Urine cx positive for Gardnerella like bacilli Stable Hypokalemia Secondary to poor oral intake and regurgitation K 3.6 today Monitor BMP stable Elevated troponin Possible related to dehydration/acute illness Troponin trending down EKG showed no acute ischemic changes Denies any chest pain ECHO done showed no wall motion abnormality, no shunt and EF 60-65 % Continue monitor Hypertension BP stable Continue enalapril Monitor BP DM 2 diet Well controlled Not on any DM meds Monitor BS Chronic anemia, hemoglobin at baseline Stable Malnutrition BMP 19.3 Will increase protein intake 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 Case discussed with Oncology about anticoagulant Dr. Garcia said that his cancer responding very well with chemotherapy and the mass is shrinking on his last scan Dr. Garcia recommended to continue Aspirin and plavix for now He wants to hold on anticoagulant since his platelet might drop during chemotherapy He would evaluate him as an outpatient and decide about to start him on Eliquis DVT px starting on Lovenox (due to high risk of GI bleeding in the setting of plavix and aspirin, monitor closely) CODE STATUS FULL CODE Disposition Possible discharge tomorrow Subjective Pt was seen and examined Lying in bed with no distress Pt said that he feels ok Denies any chest pain, palpitation and SOB Physical Exam Physical Exam: General- No acute distress, underweight Head- atraumatic Eyes- PERRL, EOMI, ENT- oropharynx clear Neck- supple, no JVD Lungs- clear to auscultation Heart- regular rhythm Abdomen- normal bowel sounds, soft, nontender Extremities- no calf tenderness Neuro- alert, oriented x 3; PERRL, EOMI; no facial palsy; no dysarthria Skin- warm & dry Results & Data Vital Signs (Past 12 Hours) Vital Signs Temp Pulse Pulse Resp BP Pulse Ox 07/29/19 16:05 68 07/29/19 15:17 37.0 C 70 16 145/68 H 94 07/29/19 13:30 152/77 H 07/29/19 11:18 36.6 C 63 18 168/72 H 95 07/29/19 08:00 68 07/29/19 07:08 36.8 C 70 16 163/67 H 95
--- NOTE | 2019-07-29 21:07 | Progress Note ---
DATE: 07/29/2019 SUBJECTIVE: I am seeing this patient in followup of bilateral infarctions. We reviewed the imaging. They essentially all appear posterior circulation. CTA shows a focal area of high grade stenosis in the V4 segment of the right vertebral artery. It is the dominant artery and exclusively forms the basilar artery. Moderate mixed plaque in the bilateral bulbs, 50% narrowing involving the V2 segment of the right vertebral artery secondary to advanced spondylitic spurring and facet arthrosis. The patient's echocardiogram showed no evidence of atrial septal defect, no shunt. Normal atrial size. The patient feels generally well today. PHYSICAL EXAMINATION: GENERAL: Reveals a field cut to the left eye which is superior and inferotemporally. No facial asymmetry. No change in speech or language. NEUROLOGIC: The patient is alert and oriented. Symmetric upper extremity strength. Mild right lower extremity weakness. [id number] and [id number] are normal. Gait is appropriate with a walker. IMPRESSION: Presumed posterior circulation strokes related to high grade stenosis of the right vertebral artery causing artery to artery embolism. Continue dual antiplatelet therapy after 1 week given the patient's gastrointestinal history, it maybe reasonable to discontinue aspirin and continue Plavix. Dr. Aiken was in touch with me regarding performing an upper endoscopy. This would require the patient to be off antiplatelet therapy. Given the setting of high grade vertebral stenosis and recent bilateral posterior circulation infarcts procedures that involve holding antiplatelet therapy should be minimized to those that are entirely necessary. Dr. Aiken indicates the patient is able to eat slippery foods at present. At some point, we may need to weigh benefit and risk. We will defer to Oncology as to whether they feel the patient needs to be treated empirically with an anticoagulant given a potential hypercoagulable state. Dr. Fox has been in touch with them in the interim. The patient is neurologically stable. Recommend occupational therapy and physical therapy referral.
[2019-07-29] MEDS: ENOXAPARIN INJ 30 MG/0.3 ML SYR SQ SCH (21:29)
[2019-07-29] MEDS: PRAVASTATIN SOD 40 MG TAB PO SCH (21:30)
[2019-07-29] MEDS: FINASTERIDE 5 MG TAB PO SCH (21:30)
[2019-07-29] MEDS: TAMSULOSIN HCL 0.4 MG CAP PO SCH (21:31)
[2019-07-30] MEDS: PIPERACILLIN/TAZOBACTAM 3.375 GM in DEXTROSE 5% 100 ML IV SCH ×3 (06:24→21:12)
[2019-07-30 06:48] LABS: Hematocrit (blood only) 29.7 % (42-52); Hemoglobin 9.7 g/dL (14.0-18.0); Mean Corpuscular Hemoglobin 30.5 pg (25-34); Mean Corpuscular Hgb Conc 32.7 g/dL (32-36); Mean Corpuscular Volume 93.4 fL (80-100); Mean Platelet Volume 10.7 fL (7.4-10.4); Platelet Count 136 K/uL (130-400); RDW Coefficient of Variation 16.4 % (11.5-14.5); RDW Standard Deviation 56.1 fL (36.4-46.3); Red Blood Count 3.18 M/uL (4.7-6.1); White Blood Count 8.25 K/uL (4.8-10.8)
[2019-07-30] MEDS: ENALAPRIL MALEATE 10 MG TAB PO SCH (08:28)
[2019-07-30] MEDS: PANTOprazole 40 MG TAB PO SCH (08:28)
[2019-07-30] MEDS: FLUTICASONE PROPIONATE NA SPR 16 GM BTL SCH (08:28)
[2019-07-30] MEDS: ASPIRIN 81 MG ECTAB PO SCH (08:28)
[2019-07-30] MEDS: CLOPIDOGREL BISULFATE 75 MG TAB PO SCH (08:28)
[2019-07-30] MEDS: INSULIN ASPART 100 UNITS/ML 3 ML PEN SC SCH ×2 (08:28→13:07)
--- NOTE | 2019-07-30 11:48 | Hospitalist Progress Note ---
Date of Service July 30, 2019 Assessment & Plan (1) Acute CVA (cerebrovascular accident): ACUTE CVA OF RT OCCIPITAL LOBE: CT head showed right occipital lobe lesion is favored to represent a metastasis and a second lesion may also be present in the right temporal lobe. MRI brain showed multifocal areas of acute to subacute infarction involve the right greater than left bilateral occipital lobes, and right temporal lobe with additional small infarct of the right posterior lateral mid cerebellar hemisphere. No abnormal enhancement to suggest intracranial metastasis. CTA head done showed focal area of high-grade stenosis within the distal right vertebral artery. CTA neck done showed focal area of high-grade stenosis involves the V4 segment right vertebral artery. ECHO done showed no wall motion abnormality, no shunt and EF 60-65 % Carotid doppler showed moderate atheromatous change. No evidence of hemodynamically significant carotid stenosis Pt is started on Aspirin and Plavix per Dr Glynn's note : Case discussed with GI about plavix and aspirin due to risk of GI bleed Since GI bleeding and Hbg is stable, it is reasonable to start ASA and Plavix from GI standpoint Appreciate input from Neurology recommends to cont Dual antiplatelets for 1 weeks ( as opposed to 3 weeks of tx given high risk Gi bleeding ( esophageal Ca) concern for possible hypercoagulable status -needing chronic anticoagulation with NOAC ( eliquis ) -metastatic adeno Ca of esophagus Per Dr Glynn : Case discussed with Oncology Dr. Garcia and ok to continue aspirin and plavix for now Dr. Garcia recommends to hold off any anticoagulation for now since pt is undergoing chemo and there is risk of chemo induced thrombocytopenia -leading increased bleeding risk He said that he will evaluate patient outpatient and will decide when to start on Eliquis pt will continue with high dose statin CONFUSION /METABOLIC ENCEPHALOPATHY : on admission pt was noted to be confused , did not know where he was at metabolic encephalopathy in setting of acute CVA symptom has resolved mental status improved to baseline URINARY RETENTION : per Nursing note : pt developed acute urinary retention on midnight of 07/29/19 bladder scan showed > 500 ml of urine straight cath was done -with approx 530 of cloudy urine and blood clots later blood scan showed > 200 ml of retained urine cabrera was inserted or recurrent urinary retention possible cause of urinary retention -acute CVA , bed confinement , elderly male with frail health ordered to DC cabrera and do voiding trial today FREQUENT PVC'S noted in Tele pt does not have any symptom possible due to electrolyte derangement? presented with hypokalemia check BMP and Mg level will keep Mg> 2 /K > 4 DYSPHAGIA : Mostly due to occlusion of the esophagus by food due to esophageal adenocarcinoma Recurrent episode of regurgitation and vomiting Barium Swallow showed esophageal dysmotility and Narrowing of the GE junction, consistent with a history of distal esophageal carcinoma Video Swallow showed equivocal trace penetration. No evidence of aspiration. GI on board initial plan was for possible esophageal stenting at present pt is tolerating slippery /moist diet can be done as out patient per Neurology it will be prudent to wait about 3 months after a CVA/also keep non uninterrupted antiplatelet therapy prior to proceed with EGD, GI team aware ASPIRATION PNEUMONIA CXR on admission showed Interval development of a right mid to upper lung dense infiltrate. Elevated WBC and Lactic acid on admission Received Levaquin in the ER WBC trending down cont On IV Zosyn Blood cx no growth SEVERE PROTEIN CALORIE MALNUTRITION : - Severe Malnutrition e/b 29% loss in Body Weight in setting of chronic illness (metastatic Esophageal adeno Ca ) wt this admission : 53.8Kg appreciate input from Nutrition /Dietary : significant wt loss noted in past few months Per RD consult, -Wt Hx: 01/13/19 = 72.4 kg 02/05/19 = 68.9 kg, 02/24/19 = 65.3 kg, 03/23/19 = 64 kg, 06/15/19 = 55 kg wt this admission : 53.8Kg 21.1 kg (29%) weight loss in 6.5 months which is significant. ordered for dietary supplement diet advanced to slippery /minced and moist by speech pathology Hypokalemia Secondary to poor oral intake and regurgitation replaced cont to monitor lytes keep K > 4 /Mg > 2 to prevent arrythmia Elevated troponin Possible related to dehydration/acute illness /demand ischemia ( Type 2 NSTEMI ) no evidence of ACS /acute coronary thrombotic event Troponin trending down EKG showed no acute ischemic changes Denies any chest pain ECHO done showed no wall motion abnormality, no shunt and EF 60-65 % Continue monitor Hypertension BP stable Continue enalapril Monitor BP DM 2 diet( diet controlled ) BSG remains low pt has significant wt loss /severe malnutrition will d/c insulin SSI liberlize diet Chronic anemia, due to metastatic adeno CA of esophagus hemoglobin at baseline 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 Case discussed with Oncology about anticoagulant per Dr Glynn: Dr. Garcia said that his cancer responding very well with chemotherapy and the mass is shrinking on his last scan Dr. Garcia recommended to continue Aspirin and plavix for now He wants to hold on anticoagulant since his platelet might drop during chemotherapy He would evaluate him as an outpatient and decide about to start him on Eliquis DVT px starting on Lovenox (due to high risk of GI bleeding in the setting of plavix and aspirin, monitor closely) CODE STATUS FULL CODE Disposition lives at home with Cont PT/OT plan for discharge home with home PT and home health when medically stable Subjective pt is awake and alert , conversing -very pleasant cognition appears to be at baseline knows that he is at [facility] hospital says when he was brought to hospital -he was confused but thinks he can able to understand and comprehend what is happening now requesting for solid diet , tired of liquid food , at home he did not had any trouble with mashed potato and noodle soup pt seen by speech this morning -diet advanced to slippery /moist and minced -pt is updated occasional PVC's noted in tele pt denies of any feeling of palpitation or chest discomfort has moist cough , no fever or chills no SOB Review of Systems Review of Systems: All systems reviewed & are unremarkable except as noted in HPI & below Physical Exam Constitutional: WD/WN, vitals as above + thin and + cachectic; no acute distress Eyes: + anicteric sclerae; + abnormal visual field confrontation (left sided peripheral vision impariment , ) ENMT: external ear and nose normal, oropharynx normal Neck: trachea midline, no thyromegaly Respiratory: + cough; no respiratory distress Cardiovascular: RRR, no murmur, no edema Gastrointestinal (Abdomen): normal bowel sounds, soft, nontender, no hepatosplenomegaly Musculoskeletal: no cyanosis or clubbing, extremities motor strength 5/5 Skin: no rashes, warm and dry Neurologic: PERRL, EOMI, accommodation nl, no face palsy, no dysarthria moves all extremities and + focal motor deficit Speech / Cognition: normal speech left sided vision deficit , no facial palsy , speech fluent Psychiatric: A+Ox3, euthymic affect Results & Data Vital Signs (Past 12 Hours) Vital Signs Temp Pulse Pulse Resp BP Pulse Ox 07/30/19 11:21 36.7 C 61 18 155/74 H 92 07/30/19 07:25 36.9 C 64 20 149/64 H 97 07/30/19 07:19 62 07/30/19 03:29 36.3 C L 56 L 16 148/77 H 93
[2019-07-30 13:19] LABS: BUN Creatinine Ratio 14.2 (10-20); Calcium 8.4 mg/dl (8.5-10.1); Est GFR (African American) 84.9; Est GFR (Non-African American) 73.2; Magnesium 1.9 mg/dl (1.8-2.4); Potassium 3.3 mmol/L (3.5-5.1)
--- NOTE | 2019-07-30 15:06 | Neurology Progress Note ---
Date of Service July 30, 2019 Assessment & Plan (1) Acute CVA (cerebrovascular accident): 1. MRI - right occipital parital infarct 2. was not on aspirin or plavix prior to stroke- aspirin 81 mg and plavix 75 mg ok'd by GI- stop for any gross bleeding 3. CTA head /neck for evaluation of posterior [id number] stenosis within the distal right vertebral artery. 4. optimize HLD, DM LDL <70 consider patients age- avoid hypotension 5. PT/OT speech for discharge needs 6. GI/oncology for continuation of treatment and whether hypercoag state with CA may need lovenox rather than plavix/aspirin- oncology ok with continue of aspirin and plavix and will reevaluate during office visit 7. upper endoscopy unless urgent issue would wait to scope due to the recent stroke. follow up in neurology 4-6 weeks Sneha Mehta PAC schedule Supervising Physician Co-Signing Physician Notes I have seen and discussed above patient with Dr Sneha Pineda, neurology discussed patient with Sneha Mehta. Patient was sleeping when we approached the bedside and did not wake him up. My clinical impression is that this patient has had bilateral posterior circulation infarcts likely related to high-grade stenosis of the distal right vertebral which is the only contribution to the basilar. Will use dual antiplatelet therapy aspirin and Plavix for 3 months if there is a concern regarding bleeding aspirin can be discontinued. After 3 months Plavix continued. Risk factor modification remains appropriate I would avoid hypotension in this patient who is dependent on vertebral flow for his posterior circulation. The patient should have a export sales manager after discharge to rule out atrial fibrillation. Defer to hematology as to whether Lovenox or other anticoagulants given the patient history would be more appropriate. Regarding whether or not the patient can have an esophageal dilatation. Dr. Aiken has continued the patient on a slippery diet and is monitoring. Certainly if dysphasia increases or swallowing does not improve patient will need to have up an upper endoscopy. And we would need to hold antiplatelet therapy for a shorter period as possible. Please schedule the patient to see us in follow-up post discharge Ghazal Dickey is a 83 year old male with PMH- GE junction carcinoma and a benign prostatic hyperplasia, presents to [facility] ED with complaints of confusion. He was unable to find any one of the three bathrooms in his house. He has intermittent urinary burning and diarrhea, and swallowing issues which have been ongoing. He lives with his and confirms he has esophageal cancer that has metastasized. He is getting chemotherapy for the CA. He has had a weight loss due to the difficulty swallowing.denies Today he states he is doing "ok". he had a swallowing study with no overt aspiration but dysmotility. GI would like to do a upper endoscopy. CP, SOB, abdominal pain, one sided weakness, numbness tingling, N, V, +vision changes Physical Exam Physical Exam: Gen: alert NAD lungs course breath sound CV RRR PT- walking with walker tandem gait one assist out of bed Results & Data Vital Signs (Past 12 Hours) Vital Signs Temp Pulse Pulse Resp BP Pulse Ox 07/30/19 11:21 36.7 C 61 18 155/74 H 92 07/30/19 07:25 36.9 C 64 20 149/64 H 97 07/30/19 07:19 62 07/30/19 03:29 36.3 C L 56 L 16 148/77 H 93
[2019-07-30] MEDS: ENOXAPARIN INJ 30 MG/0.3 ML SYR SQ SCH (20:04)
[2019-07-30] MEDS: TAMSULOSIN HCL 0.4 MG CAP PO SCH (20:05)
[2019-07-30] MEDS: FINASTERIDE 5 MG TAB PO SCH (20:05)
[2019-07-31] MEDS: PIPERACILLIN/TAZOBACTAM 3.375 GM in DEXTROSE 5% 100 ML IV SCH (05:53)
[2019-07-31 06:43] LABS: Potassium 3.3 mmol/L (3.5-5.1)
[2019-07-31 06:51] LABS: Magnesium 1.8 mg/dl (1.8-2.4)
[2019-07-31] MEDS ORDERED: POTASSIUM CHLORIDE 20 MEQ TABCR PO STA (07:36)
[2019-07-31] MEDS: CLOPIDOGREL BISULFATE 75 MG TAB PO SCH (08:21)
[2019-07-31] MEDS: ASPIRIN 81 MG ECTAB PO SCH (08:22)
[2019-07-31] MEDS: FLUTICASONE PROPIONATE NA SPR 16 GM BTL SCH (08:22)
[2019-07-31] MEDS: ATORVASTATIN 40 MG TAB PO SCH (08:22)
[2019-07-31] MEDS: ENALAPRIL MALEATE 10 MG TAB PO SCH (08:22)
--- NOTE | 2019-07-31 14:24 | Hospitalist Progress Note ---
Date of Service July 31, 2019 Assessment & Plan (1) Acute CVA (cerebrovascular accident): ACUTE CVA OF RT OCCIPITAL LOBE: CT head showed right occipital lobe lesion is favored to represent a metastasis and a second lesion may also be present in the right temporal lobe. MRI brain showed multifocal areas of acute to subacute infarction involve the right greater than left bilateral occipital lobes, and right temporal lobe with additional small infarct of the right posterior lateral mid cerebellar hemisphere. No abnormal enhancement to suggest intracranial metastasis. CTA head done showed focal area of high-grade stenosis within the distal right vertebral artery. CTA neck done showed focal area of high-grade stenosis involves the V4 segment right vertebral artery. ECHO done showed no wall motion abnormality, no shunt and EF 60-65 % Carotid doppler showed moderate atheromatous change. No evidence of hemodynamically significant carotid stenosis Pt is started on Aspirin and Plavix per Dr Glynn's note : Case discussed with GI about plavix and aspirin due to risk of GI bleed Since GI bleeding and Hbg is stable, it is reasonable to start ASA and Plavix from GI standpoint Appreciate input from Neurology recommends to cont Dual antiplatelets for 1 weeks ( as opposed to 3 weeks of tx given high risk Gi bleeding ( esophageal Ca) And single antiplatelet /Plavix for lifelong concern for possible hypercoagulable status -needing chronic anticoagulation with NOAC ( eliquis ) -metastatic adeno Ca of esophagus Per Dr Glynn : Case discussed with Oncology Dr. Garcia and ok to continue aspirin and plavix for now Dr. Garcia recommends to hold off any anticoagulation for now since pt is undergoing chemo and there is risk of chemo induced thrombocytopenia -leading increased bleeding risk He said that he will evaluate patient outpatient and will decide when to start on Eliquis pt will continue with high dose statin changed to Lipitor 40 mg daily for high intensity statin treatment-post acute CVA CONFUSION /METABOLIC ENCEPHALOPATHY : on admission pt was noted to be confused , did not know where he was at metabolic encephalopathy in setting of acute CVA symptom has resolved mental status improved to baseline URINARY RETENTION : Has been having intermittent urinary retention possible cause of urinary retention -acute CVA , bed confinement , elderly male with frail health Continue Strauss, ordered for voiding trial FREQUENT PVC'S Resolved, telemetry does not show any evidence of arrhythmia-DC static balancer pt does not have any symptom possible due to electrolyte /hypokalemia Electrolytes replaced will keep Mg> 2 /K > 4 DYSPHAGIA : Mostly due to occlusion of the esophagus by food due to esophageal adenocarcinoma Recurrent episode of regurgitation and vomiting Barium Swallow showed esophageal dysmotility and Narrowing of the GE junction, consistent with a history of distal esophageal carcinoma Video Swallow showed equivocal trace penetration. No evidence of aspiration. GI on board initial plan was for possible esophageal stenting at present pt is tolerating slippery /moist diet can be done as out patient per Neurology it will be prudent to wait about 3 months after a CVA/also keep non uninterrupted antiplatelet therapy prior to proceed with EGD, GI team aware ASPIRATION PNEUMONIA CXR on admission showed Interval development of a right mid to upper lung dense infiltrate. Elevated WBC and Lactic acid on admission Received Levaquin in the ER BC normalized Treated with IV Zosyn antibiotic day #4/antibiotic changed to p.o. Augmentin(appreciate input from pharmacy for antibiotic stewardship) to complete total 7 days of treatment Blood cx no growth SEVERE PROTEIN CALORIE MALNUTRITION : in setting of chronic illness (metastatic Esophageal adeno Ca ) , poor appetite, ongoing chemo treatment - Severe Malnutrition e/b 29% loss in Body Weight appreciate input from Nutrition /Dietary : significant wt loss noted in past few months Per RD consult, -Wt Hx: 01/13/19 = 72.4 kg 02/05/19 = 68.9 kg, 02/24/19 = 65.3 kg, 03/23/19 = 64 kg, 06/15/19 = 55 kg wt this admission : 53.8Kg 21.1 kg (29%) weight loss in 6.5 months which is significant. ordered for dietary supplement diet advanced to slippery /minced and moist by speech pathology Hypokalemia Secondary to poor oral intake and regurgitation replaced cont to monitor lytes keep K > 4 /Mg > 2 to prevent arrythmia Elevated troponin Possible related to dehydration/acute illness /demand ischemia ( Type 2 NSTEMI ) no evidence of ACS /acute coronary thrombotic event Troponin trending down EKG showed no acute ischemic changes Denies any chest pain ECHO done showed no wall motion abnormality, no shunt and EF 60-65 % Continue monitor Hypertension BP stable Continue enalapril DM 2 diet( diet controlled ) hbGlobin A1c 6.5 pt has significant wt loss /severe malnutrition will d/c insulin SSI liberalized Diet Chronic anemia, due to metastatic adeno CA of esophagus hemoglobin at baseline 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 Case discussed with Oncology about anticoagulant per Dr Gretta: Dr. Garcia said that his cancer responding very well with chemotherapy and the mass is shrinking on his last scan Dr. Garcia recommended to continue Aspirin and plavix for now He wants to hold on anticoagulant since his platelet might drop during chemotherapy He would evaluate him as an outpatient and decide about to start him on Eliquis DVT px starting on Lovenox (due to high risk of GI bleeding in the setting of plavix and aspirin, monitor closely) CODE STATUS FULL CODE Disposition lives at home with Patient input from PT OT, Patient will be discharged home with home physical therapy Plan of care discussed with patient's daughter present at bedside Tentative discharge home tomorrow Subjective pt reports of feeling little bit better, appetite has marginally improved, Daughter present at bedside, No cough, no chest heaviness, no fever or chills Physical Exam Constitutional: WD/WN, vitals as above + thin and + cachectic; no acute distress Eyes: + anicteric sclerae; + abnormal visual field confrontation (left sided peripheral vision impariment , ) ENMT: external ear and nose normal, oropharynx normal Neck: trachea midline, no thyromegaly Respiratory: + cough; no respiratory distress Cardiovascular: RRR, no murmur, no edema Gastrointestinal (Abdomen): normal bowel sounds, soft, nontender, no hepatosplenomegaly Musculoskeletal: no cyanosis or clubbing, extremities motor strength 5/5 Skin: no rashes, warm and dry Neurologic: PERRL, EOMI, accommodation nl, no face palsy, no dysarthria moves all extremities and + focal motor deficit Speech / Cognition: normal speech Psychiatric: A+Ox3, euthymic affect Results & Data Vital Signs (Past 12 Hours) Vital Signs Temp Pulse Pulse Resp BP Pulse Ox Pulse Ox 07/31/19 11:30 36.4 C L 62 16 148/69 H 93 07/31/19 11:27 93 07/31/19 11:17 36.5 C 62 18 164/75 H 93 07/31/19 09:53 93 07/31/19 07:16 66 07/31/19 07:03 36.8 C 70 20 150/76 H 97 07/31/19 02:53 36.7 C 66 19 162/75 H 86 L
[2019-07-31] MEDS ORDERED: PROCHLORPERAZINE MALEATE 10 MG TAB PO PRN (15:20)
[2019-07-31] MEDS ORDERED: OXYCODONE HCL SOLN 5 MG/5 ML UDC PO PRN (15:20)
[2019-07-31] MEDS ORDERED: LORazepam 0.5 MG TAB PO PRN (15:20)
[2019-07-31] MEDS ORDERED: ONDANSETRON 8 MG TABLET PO PRN (15:20)
[2019-07-31] MEDS: AMOXICILLIN/CLAVULANATE 875 MG TAB PO SCH (16:31)
[2019-07-31] MEDS: TAMSULOSIN HCL 0.4 MG CAP PO SCH (19:54)
[2019-07-31] MEDS: ENOXAPARIN INJ 30 MG/0.3 ML SYR SQ SCH (19:54)
[2019-07-31] MEDS: FINASTERIDE 5 MG TAB PO SCH (19:54)
[2019-08-01] MEDS: AMOXICILLIN/CLAVULANATE 875 MG TAB PO SCH (08:07)
[2019-08-01] MEDS: ASPIRIN 81 MG ECTAB PO SCH (08:07)
[2019-08-01] MEDS: FLUTICASONE PROPIONATE NA SPR 16 GM BTL SCH (08:07)
[2019-08-01] MEDS: ENALAPRIL MALEATE 10 MG TAB PO SCH (08:08)
[2019-08-01] MEDS: CLOPIDOGREL BISULFATE 75 MG TAB PO SCH (08:08)
[2019-08-01] MEDS: ATORVASTATIN 40 MG TAB PO SCH (08:08)
[2019-08-01] MEDS ORDERED: POLYETHYLENE (MIRALAX) 17 GM PACK PO SCH (09:00)
[2019-08-01] MEDS ORDERED: POTASSIUM CHLORIDE 20 MEQ TABCR PO STA (11:31)
--- NOTE | 2019-08-01 12:16 | Discharge Summary ---
Date of Service August 01, 2019 Admission HPI Per Admitting Provider History obtained from patient, family, and records. 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 Patient noted worsening dysphagia, regurgitation over the last few months, occasional coughing with meals and water intake if not careful. No chest pain, no unusual shortness of breath. Significant weight loss as per family. Today patient noted to be disoriented by family. Patient feeling fuzzy, could not find any of the bathrooms in his home. Denies headache. Denies abdominal pain, diarrhea. Denies dysuria. Usual urinary retention issues. Denies inordinate intake of pain/anxiety medications. At the ER, patient given Levaquin for sepsis. 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 Principal Diagnosis Acute stroke, metastatic esophageal cancer, aspiration pneumonia Discharge Exam Constitutional WD/WN, vitals as above + thin and + cachectic; no acute distress Eyes + anicteric sclerae; + abnormal visual field confrontation (left sided peripheral vision impariment , ) ENMT external ear and nose normal, oropharynx normal Neck trachea midline, no thyromegaly Respiratory + cough; no respiratory distress Cardiovascular RRR, no murmur, no edema Gastrointestinal (Abdomen) normal bowel sounds, soft, nontender, no hepatosplenomegaly Musculoskeletal no cyanosis or clubbing, extremities motor strength 5/5 Skin no rashes, warm and dry Neurologic PERRL, EOMI, accommodation nl, no face palsy, no dysarthria moves all extremities and + focal motor deficit Speech / Cognition: normal speech Psychiatric A+Ox3, euthymic affect Discharge Data Allergies Allergy/AdvReac Type Severity Reaction Status Date / Time Sulfa (Sulfonamide Allergy Severe Rash Verified 07/27/19 18:36 Antibiotics) cephalexin [From Keflex] Allergy Intermediate Rash Verified 07/28/19 06:17 Consultations 07/27/19 19:15 ED Decision to Admit Stat 07/27/19 21:27 Consult Gastroenterology Routine 07/28/19 10:02 Consult Neurology Routine Ordered Studies 07/27/19 18:24 CT head/brain wo con Stat 07/28/19 03:21 MR brain wo/w con Routine IMPRESSION: 1. Multifocal areas of acute to subacute infarction involve the right greater than left bilateral occipital lobes, and right temporal lobe with additional small infarct of the right posterior lateral mid cerebellar hemisphere. 2. Age-related involutional changes with chronic microvascular ischemic disease. 3. No abnormal enhancement to suggest intracranial metastasis. 07/28/19 11:21 US carotid doppler BI Routine Moderate atheromatous change. No evidence of hemodynamically significant carotid stenosis 07/29/19 08:33 CT angio head wo/w Routine CT angio neck with con Routine 1. Progressive hypodensity corresponding to the patient's known bilateral occipital lobe, right temporal lobe, and left thalamic infarcts consistent with expected evolution of the subacute infarct. No evidence for hemorrhagic transformation at this time. 2. 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 3. Focal area of high-grade stenosis within the distal right vertebral artery. 4. Mild multifocal narrowing within the bilateral carotid siphons due to the calcified plaque. 07/29/19 11:30 FL barium swallow Routine 07/29/19 11:46 FL video swallow Routine Hospital Course (1) Acute CVA (cerebrovascular accident): ACUTE CVA OF RT OCCIPITAL LOBE: CT head showed right occipital lobe lesion is favored to represent a metastasis and a second lesion may also be present in the right temporal lobe. MRI brain showed multifocal areas of acute to subacute infarction involve the right greater than left bilateral occipital lobes, and right temporal lobe with additional small infarct of the right posterior lateral mid cerebellar hemisphere. No abnormal enhancement to suggest intracranial metastasis. CTA head done showed focal area of high-grade stenosis within the distal right vertebral artery. CTA neck done showed focal area of high-grade stenosis involves the V4 segment right vertebral artery. ECHO done showed no wall motion abnormality, no shunt and EF 60-65 % Carotid doppler showed moderate atheromatous change. No evidence of hemodynamically significant carotid stenosis Pt is started on Aspirin and Plavix per Dr Glynn's note : Case discussed with GI about plavix and aspirin due to risk of GI bleed Since GI bleeding and Hbg is stable, it is reasonable to start ASA and Plavix from GI standpoint Appreciate input from Neurology pt will be continued with dual antiplatelets for 3 months , then Asprin can be discontinued if there is increased bleeding risk cont on Palvix indefintiely concern for possible hypercoagulable status -needing chronic anticoagulation with NOAC ( eliquis ) -metastatic adeno Ca of esophagus Per Compare : Case discussed with Oncology Dr. Garcia and ok to continue aspirin and plavix for now Dr. Garcia recommends to hold off any anticoagulation for now since pt is undergoing chemo and there is risk of chemo induced thrombocytopenia -leading increased bleeding risk He said that he will evaluate patient outpatient and will decide when to start on Eliquis pt will continue with high dose statin changed to Lipitor 40 mg daily for high intensity statin treatment-post acute CVA CONFUSION /METABOLIC ENCEPHALOPATHY : on admission pt was noted to be confused , did not know where he was at metabolic encephalopathy in setting of acute CVA symptom has resolved mental status improved to baseline URINARY RETENTION : resolved Has been having intermittent urinary retention possible cause of urinary retention -acute CVA , bed confinement , elderly male with frail health Strauss D/lizy pt been able to void spontaneously with minimum post void residual FREQUENT PVC'S Resolved, telemetry does not show any evidence of arrhythmia-DC process tank tender pt does not have any symptom possible due to electrolyte /hypokalemia Electrolytes replaced w DYSPHAGIA : Mostly due to occlusion of the esophagus by food due to esophageal adenoc arcinoma Recurrent episode of regurgitation and vomiting Barium Swallow showed esophageal dysmotility and Narrowing of the GE junction, consistent with a history of distal esophageal carcinoma Video Swallow showed equivocal trace penetration. No evidence of aspiration. GI on board initial plan was for possible esophageal stenting at present pt is tolerating slippery /moist diet can be done as out patient per Neurology it will be prudent to wait about 3 months after a CVA/also keep non uninterrupted antiplatelet therapy prior to proceed with EGD, GI team aware ASPIRATION PNEUMONIA CXR on admission showed Interval development of a right mid to upper lung dense infiltrate. Elevated WBC and Lactic acid on admission Received Levaquin in the ER BC normalized Treated with IV Zosyn antibiotic day #5/antibiotic changed to p.o. Augmentin(appreciate input from pharmacy for antibiotic stewardship) to complete total 7 days of treatment Blood cx no growth pt is discharged home with 2 more days of PO Augmentin SEVERE PROTEIN CALORIE MALNUTRITION : in setting of chronic illness (metastatic Esophageal adeno Ca ) , poor appetite, ongoing chemo treatment - Severe Malnutrition e/b 29% loss in Body Weight appreciate input from Nutrition /Dietary : significant wt loss noted in past few months Per RD consult, -Wt Hx: 01/13/19 = 72.4 kg 02/05/19 = 68.9 kg, 02/24/19 = 65.3 kg, 03/23/19 = 64 kg, 06/15/19 = 55 kg wt this admission : 53.8Kg 21.1 kg (29%) weight loss in 6.5 months which is significant. ordered for dietary supplement diet advanced to slippery /minced and moist by speech pathology Hypokalemia Secondary to poor oral intake and regurgitation replaced cont to monitor lytes keep K > 4 /Mg > 2 to prevent arrythmia Elevated troponin Possible related to dehydration/acute illness /demand ischemia ( Type 2 NSTEMI ) no evidence of ACS /acute coronary thrombotic event Troponin trending down EKG showed no acute ischemic changes Denies any chest pain ECHO done showed no wall motion abnormality, no shunt and EF 60-65 % Continue monitor Hypertension BP stable Continue enalapril DM 2 diet( diet controlled ) hbGlobin A1c 6.5 pt has significant wt loss /severe malnutrition will d/c insulin SSI liberalized Diet Chronic anemia, due to metastatic adeno CA of esophagus hemoglobin at baseline 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 Case discussed with Oncology about anticoagulant per Dr Glynn: Dr. Garcia said that his cancer responding very well with chemotherapy and the mass is shrinking on his last scan Dr. Garcia recommended to continue Aspirin and plavix for now He wants to hold on anticoagulant since his platelet might drop during chemotherapy He would evaluate him as an outpatient and decide about to start him on Eliquis DVT px starting on Lovenox (due to high risk of GI bleeding in the setting of plavix and aspirin, monitor closely) CODE STATUS FULL CODE Disposition lives at home with Patient input from PT OT, Patient will be discharged home with home physical therapy Pt is stable to be discharged home today DC plan explained to Daughter and patient , all questions answered Total Time Total Time Spent Total Time Spent (In Minutes): approx 35 mins Total Time Includes: Examination of the Patient, Discharge Planning and Medication Reconciliation Discharge Plan Discharge Items Patient Disposition: Home - Home Health Services Reason For Visit: SEPSIS Discharge Diagnosis: Acute stroke, metastatic esophageal cancer, aspiration pneumonia Activity: Resume your previous activity Non-emergency contact: Primary Care Provider Call non-emergency contact if: you have any medication questions Follow-up/Referrals: Chanda Meeks, [Primary Care Provider] - Diet: Regular Diet Texture: Mechanical soft (ground) Addtl Attending Provider Instructions: Hospital follow-up with Dr. Medeiros on 08/05/2019 at 3 [address] [facility] [address] Meeks's schedule is full NEW MEDICATIONS: 1. Aspirin 81 mg daily(with meals)-for 3 months: To prevent future stroke 2. Plavix 75 mg daily(take with meals): To prevent future stroke 3. Atorvastatin 40 mg daily-cholesterol lowering medication 4. Antibiotic: Augmentin 1 tablet twice daily for 2 more days-for pneumonia STOP TAKING: Pravachol/pravastatin : This medication is changed and started on new medication Lipitor/atorvastatin which is much more effective to prevent future stroke Risk Factors for Stroke: You can reduce your chances of stroke by working with your medical provider to adopt a healthy lifestyle. Some specific ways to lower your chance of stroke are: * If you are a smoker, now is the time to stop smoking cigarettes * If you are diabetic, improve the control of your blood sugars * Avoid excessive amounts of alcohol * Control high blood pressure * Lose weight if you are overweight * Be sure to lead an active lifestyle * Eat a healthy diet low in salt, cholesterol and fat You should know about other risk factors for stroke that you are unable to control. These include: * Age 55 years or older * Male gender * Certain racial groups: , or / * Family History of Stroke, Mini stroke or Heart Attack * Sickle Cell Disease Follow Up: It is important for you to keep your follow up appointments with your medical provider. Who to Call and When: Medical Emergencies: Call 911 immediately if you experience any of the following warning signs and symptoms of Stroke: * Sudden numbness or weakness of the face, arm or leg, especially on one side of the body * Sudden confusion, trouble speaking or understanding * Sudden trouble seeing in one or both eyes * Sudden trouble walking, dizziness, loss of balance or coordination * Sudden severe headache with no cause Do not delay calling 911 if you experience any warning signs or symptoms of a stroke. Delay in seeking medical attention may affect what treatments can be given to you. . Pending Studies at Discharge: No Stand-Alone Forms: [facility], Smoking Cessation Medications and DC Order Prescriptions: New amoxicillin-pot clavulanate 875-125 mg Tablet 1 tab PO BIDM 2 Days Qty: 4 RF: 0 clopidogrel 75 mg Tablet 75 mg PO QAM 30 Days Qty: 30 RF: 0 atorvastatin 40 mg Tablet 40 mg PO QAM 30 Days Qty: 30 RF: 3 aspirin [Ecotrin Low Strength] 81 mg Tablet,Delayed Release (Dr/Ec) 81 mg PO QAM 30 Days Qty: 30 RF: 3 Continued ranitidine HCl [Acid Control (ranitidine)] 150 mg tablet 150 mg PO BID RF: 0 finasteride [Proscar] 5 mg tablet 5 mg PO QPM RF: 0 tamsulosin [Flomax] 0.4 mg capsule 0.4 mg PO HS RF: 0 enalapril maleate [Vasotec] 10 mg tablet 10 mg PO QAM RF: 0 ondansetron HCl [Zofran] 8 mg Tablet 8 mg PO Q8 PRN (Reason: Nausea) RF: 0 prochlorperazine maleate 10 mg Tablet 10 mg PO Q6H PRN (Reason: Nausea) RF: 0 lorazepam 0.5 mg Tablet 0.5 mg PO TID PRN (Reason: Anxiety) RF: 0 oxycodone 5 mg/5 mL Solution 5 mg PO Q6H PRN (Reason: Pain) RF: 0 pantoprazole 40 mg Tablet,Delayed Release (Dr/Ec) 40 mg PO DAILY RF: 0 dexamethasone 4 mg Tablet 12 mg PO DIRECTED RF: 0 fluticasone propionate 50 mcg/actuation [place],Suspension 2 spray INTRANASAL DAILY RF: 0 Discontinued pravastatin [Pravachol] 40 mg tablet 40 mg PO HS RF: 0 Discharge Orders: Discharge Order (Routine); Ordered 08/01/19 Ordered By: Yaquelin Manning Admission Data Admit Date/Time: 07/27/19 20:46 Attending Provider: Yaquelin Manning Admit Provider: Terry Dillon Primary Care Provider: Chanda Meeks Other Providers: Terry Dillon ; Latricia Ortiz ; Lori Askew ; Emerald Ames ; Amrik Mares ; Lauren Aiken ; Cammy Lr ; Arleen Choi ; Urbano Pretty ; Gaston Lobo ; Nery Reina ; Amena Simeon ; Stephy Rizvi ; Shania Patel ; Cristina Mcdaniel ; Sneha Pineda
--- NOTE | 2019-08-08 04:04 | Coding Query ---
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 Please assist us with the question(s) below: Coding Question(s): Seeking to clarify stroke. Neurology note 07/28 stated " Rt Occipital Infarct". 07/29 Neuro note stated "Rt Occipital/Parietal infarct , multiple posterior circulation with embolism , high grade vertebral stenosis". 07/30 Neuro note stated patient had bilateral circulation infarcts of distal right vertebral artery. Discharge Summary stated " MRI multifocal infarct right greater than left occiptal lobe and right temporal lobe with additional small infarct of right posterior cerebellar. CTA high grade stenosis of distal right vertebral ." Please document, if known or suspected, the location of the stroke as well as type of stroke (embolic,thrombotic if applicable). Thanks for your help ! Mark Anthony Ely [facility] Physician's Response(s): Pt had Bilateral Occipital cva with rt temporal lobe and rt post cerebellar infraction( as per MRI of brain ) -possible embolic phenomenon Yaquelin Manning MD Principal Diagnosis: "that condition established after study, to be chiefly responsible for occasioning the admission of the patient to the hospital for care." Co-Existing Principal Diagnosis: "when two or more diagnoses equally meet the criteria for principal diagnosis as determined by the circumstances of admission, diagnostic work up, and/or therapy provided, and the Alphabetic Index, Tabular List, or another coding guideline does not provide sequencing direction, any one of the diagnoses may be sequenced first." "When the physician has documented what appears to be a current diagnosis in the body of the record, but has not included the diagnosis in the final diagnostic statement, the physician should be asked whether the diagnosis should be added." (Source Coding [facility] 2 QTR90. p3-4) RENATA
== END 2019-08-01 13:31 | disposition home health service (06) | DRG 64 ==
LOC: ED 17:54 → 2W 20:46 → SUATTDRO 20:46 → 2W 21:10